=== PATIENT | male | born 1950 | race Caucasian/White ===

== ENCOUNTER → 2016-08-25 | Outpatient (CLI) | payer BC ==
[~2016-08-25] MED LIST: ASPI81TA28 PO; PRLSR20 PO; SIMV80TA2 PO; TRIATAB3 PO
[2016-08-25 13:30] LABS: ALB/GLOB RATIO 0.9 (0.9-2); ALKALINE PHOSPHATASE 63 U/L (45-117); ALT/SGPT 26 U/L (12-78); AST/SGOT 15 U/L (15-37); BLOOD UREA NITROGEN 15 mg/dl (7-18); BUN/CREATININE RATIO 13.7 (10-20); CARBON DIOXIDE 28 mmol/L (21-32); CHLORIDE 108 mmol/L (98-107); CHOLESTEROL 114 mg/dl (0-200); CHOLESTEROL/HDL RATIO 3.4; GLUCOSE 94 mg/dl (70-99); HDL CHOLESTEROL 34 mg/dl; LDL CHOLESTEROL CALCULATED 51 mg/dl; POTASSIUM 4.1 mmol/L (3.5-5.1); SODIUM 141 mmol/L (136-145); TRIGLYCERIDES 143 mg/dl (0-150); VERY LOW DENSITY LIPOPROT CALC 29 mg/dl
[2016-08-25 13:34] LABS: ESTIMATED AVERAGE GLUCOSE 117 mg/dl; HA1C FLAG Normal (Normal)
== END | disposition home or self-care (01) ==
LOC: C.LABPVFM 08:04
PROVIDERS: ATTEND Family Medicine
DX: E78.5 Hyperlipidemia, unspecified (principal); I10 Essential (primary) hypertension; K21.0 Gastro-esophageal reflux disease with esophagitis; D22.9 Melanocytic nevi, unspecified; R73.01 Impaired fasting glucose

== ENCOUNTER → 2016-12-25 | Outpatient (CLI) | payer BC ==
[2016-12-25 17:44] LABS: BASO % 0.3 %; BASO ABS # 0.02 K/uL (0-0.2); COMPLETE YES; EOS % 4.7 %; HEMATOCRIT 42.5 % (42-52); IG% 0.3 %; LYMPH % 30.3 %; LYMPH ABS # 1.74 K/uL (1.2-3.4); MEAN CELL VOLUME 94.9 fL (80-100); MEAN CORPUSCULAR HEMOGLOBIN 32.1 pg (25-34); MEAN CORPUSCULAR HGB CONC 33.9 g/dl (32-36); MEAN PLATELET VOLUME 10.7 fL (7.4-10.4); MONO % 8.4 %; PLATELET COUNT 192 K/uL (130-400); RED BLOOD COUNT 4.48 M/uL (4.7-6.1); WHITE BLOOD COUNT 5.74 K/uL (4.8-10.8)
[2016-12-25 18:45] LABS: ALT/SGPT 33 U/L (12-78); AST/SGOT 21 U/L (15-37); BLOOD UREA NITROGEN 22 mg/dl (7-18); BUN/CREATININE RATIO 18.6 (10-20); CALCIUM 9.8 mg/dl (8.5-10.1); CARBON DIOXIDE 24 mmol/L (21-32); CHLORIDE 106 mmol/L (98-107); GLUCOSE 96 mg/dl (70-99); POTASSIUM 4.1 mmol/L (3.5-5.1); SODIUM 137 mmol/L (136-145)
[2016-12-25 18:56] LABS: ALB/GLOB RATIO 0.8 (0.9-2); ALKALINE PHOSPHATASE 78 U/L (45-117)
[2016-12-26 06:33] LABS: ESTIMATED AVERAGE GLUCOSE 120 mg/dl; HA1C FLAG Normal (Normal)
--- NOTE | 2016-12-29 13:38 | CODING QUERY MEDICAL NECESSITY ---
SUPPORTING DIAGNOSIS NEEDED A supporting diagnosis is required for the test/procedure performed on this patient in order for us to be reimbursed by the patient's insurance. Please provide a supporting diagnosis for the following test/procedure listed below next to the test name along with your signature. *If there is no additional diagnosis for this patient that would support the following test/procedure please document that below next to the test/procedure. Test(s)/Procedure(s) that require a supporting diagnosis: * VITAMIN D, 25- HYDROXY DIAGNOSIS: * VITAMIN B12 DIAGNOSIS: Provider Signature: Date: Thank you Sylvia German [employer] Information Management Once completed, please kindly fax back to [phone] For questions please call [phone]
== END | disposition home or self-care (01) ==
LOC: C.LABPVFM 11:53
PROVIDERS: ATTEND Neuromusculoskeletal Medicine & OMM
DX: R53.83 Other fatigue (principal); E78.5 Hyperlipidemia, unspecified; I10 Essential (primary) hypertension; R73.01 Impaired fasting glucose; M1A.9XX0 Chronic gout, unspecified, without tophus (tophi); K21.0 Gastro-esophageal reflux disease with esophagitis

== ENCOUNTER → 2017-01-01 | Outpatient (CLI) | payer BC ==
[~2017-01-01] MED LIST changes: +OPTIRAY 320 IV PRN
--- NOTE | 2017-01-01 09:37 | DIAGNOSTIC IMAGING REPORT ---
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 TECHNIQUE: Multidetector CT imaging of the head was performed before and after the administration of intravenous contrast. IV contrast: 93 mL of Optiray 320. A dose lowering technique was used consistent with the principles of ALARA (as low as reasonably achievable). COMPARISON: None. CT DOSE (mGy.cm): The estimated cumulative dose is 1074.96 mGy.cm. FINDINGS: Butcher Supervisor topogram: Unremarkable. Ventricles and sulci normal in size. Brain parenchyma normal in appearance with preserved horton-white differentiation. No abnormal enhancement on postcontrast imaging. Intracranial vasculature grossly patent. No mass effect or midline shift. No hemorrhage or acute territorial infarct. No extra-axial fluid collection. Mild mucosal thickening in the anterior ethmoid air cells. Partial opacification of the left frontal sinus. Postsurgical changes of maxillary antrostomies. Calvarium intact. IMPRESSION: 1. No acute intracranial pathology. No abnormal enhancement. 2. Partial opacification of anterior ethmoid air cells and left frontal sinus with postsurgical changes of maxillary antrostomies. Electronically signed by: Arturo Rhodes M.D. 01/01/2017 9:36 AM Dictated Date/Time: 01/01/2017 9:30 AM
== END | disposition home or self-care (01) ==
LOC: C.CTS 09:05
PROVIDERS: ATTEND Internal Medicine Hematology
DX: D47.2 Monoclonal gammopathy (principal)

== ENCOUNTER → 2017-01-24 | Outpatient (CLI) | payer BC ==
[~2017-01-24] MED LIST changes: -OPTIRAY 320 IV PRN
[2017-01-24 19:07] LABS: LYME DISEASE AB IGG NEG (NEG); LYME DISEASE AB IGM NEG (NEG)
== END | disposition home or self-care (01) ==
LOC: C.LABPVFM 14:30
PROVIDERS: ATTEND Neuromusculoskeletal Medicine & OMM
DX: R53.83 Other fatigue (principal)

== ENCOUNTER → 2017-05-29 | Outpatient (CLI) | payer BC ==
[~2017-05-29] VITALS: Ht 170.2 cm; Wt 76.1 kg
[2017-05-29 15:30] VITALS: BP 138/80; PULSE 78; Ht 170.2 cm; Wt 76.1 kg
== END | disposition home or self-care (01) ==
LOC: C.NEUR 13:35
PROVIDERS: ATTEND Physician Assistant Medical
DX: G47.30 Sleep apnea, unspecified (principal); R53.83 Other fatigue

== ENCOUNTER → 2017-06-25 | Outpatient (CLI) | payer BC ==
--- NOTE | 2017-06-26 06:07 | PAP/PSG TECHNICIAN REPORT ---
[facility] Steam Trap Man Polysomnogram Report Study name: None Report date: 06/26/2017 Study date: 06/25/2017 Referring Physician: Ruma Perez PA-C Name: HAYDEE SANCHEZ Interpreting Physician: Brock Wilson M.D. Date of : 1950 Steam Trap Man: Julieta Kuhn RPSGT. Sex: Male Age: 67 Study Type: PSG PAP Weight: 167.8 lbs 15 in Height: 67 years, Height 5' 8" Neck Circum: BMI: 25.51 Medications: ASPIRIN 81 MG, INDOMETHACIN 25 MG, IRBESARTAN 300 MG, LOPERAMIDE 2 MG, OMEPRAZOLE 20 MG, SIMVASTATIN 40 MG Patient History 67 yr-old male here for a new CPAP treatment study. He was found to be positive for REGINA via a home sleep study. His AHI was around 25. He chose a Simplus full face mask size medium from [employer]. The test was started on room air and 4 CMH2O. ETCO2 testing was not utilized during this study. Room 1 Parameters Monitored NPSG: E1-M2, E2-M1, Fp1-M2, Fp2-M1, F3-M2, F4-M2, F4-M1, C3-M2, C4-M2, C4-M1, O1-M2, O2-M2, O2-M1, T3-M2, T4-M1, P3-M2, P4-M1, CHIN1, CHIN2, HR, EKG, Legs, PFLOW, SNOR, FLOW, CFLOW, Tidal Volume, THOR, ABDO, SpO2, PLTH, CPRESS, ETCO2 Wave, ETCO2, pH Sleep Architecture Sleep Stages Time at Lights Off 10:19:00 PM STAGES Time (min.) TST (%) Time at Lights On 5:35:00 AM Wake 65.0 -- Total Recording Time (TRT) 436.00 min. N1 67.0 18 Total Sleep Period (TSP) 429.5 min. N2 207.5 56 Total Sleep Time (TST) 371.0min. N3 24.0 6 Awake Time 65.0 min. REM 72.5 20 Wake after Sleep Onset 58.5 min. Sleep Efficiency (SE) 85 % Sleep Onset Latency (BENJAMIN) 6.5 min. Number of Stage 1 Shifts None Awakenings 20 Stage Changes 116 Number of REM periods 5 REM 72.5 20 REM Latency 42.0 min. NREM 298.5 80 Body Position Analysis Supine Right Left Side Prone Vertical Total Sleep Time (min.) 83.1 103.3 219.2 322.54 0.0 0.0 Total Sleep Time (%) 13% 28% 59% 87 0% N/A% Total Sleep Time REM (min.) 0.0 12.0 60.5 None 0.0 0.0 Total Sleep Time NREM (min.) 48.5 91.3 158.7 None 0.0 0.0 Intermittent Wake (min.) 34.7 7.2 23.1 None 0.0 0.0 Total Sleep Period (%) 18% None None None None None Arousals Myoclonus (PLM) * Events Count Index Events Count Index Spontaneous 34 5 Events Awake (PLMW) 46 42.5 Respiratory 12 2.1 Events Asleep w/ Arousal (PLMA) 29 4.7 PLM 29 5 Events Asleep w/o Arousal (PLMS) 142 23.0 Snoring 4 1 Total Asleep 171 27.7 Total 79 13 Total 217 30 Respiratory Analysis * CA OA MA CH H RERA Total Count 4 2 0 0 4 10 10 Index 0.6 0.3 0.0 0 0.6 2 3.2 Mean Duration 12.4 14.6 0.0 0.00 21.3 19.1 17.7 Longest Duration 14.7 15.9 0.0 0.00 0.0 23.6 24.3 Respiratory Event Summary Total Supine ~Supine Right Left Prone REM NREM Apneas Count 6 4 2 0 2 N/A 1 5 Index 1.0 5 0 0.0 0.5 N/A 1 1 Hypopneas (4% Desat) Count 4 2 2 0 2 N/A 1 3 Index 0.6 2.5 0 0.0 0.5 N/A 0.8 0.6 Apneas & All Hypopneas Count 10 6 4 0 4 N/A 2 8 Index 1.6 7 1 0 1 N/A 1.7 1.6 Respiratory Events (Industrial Illuminating Engineer+All Hyp+RERA) Count 10 13 7 0 7 N/A 2 8 Index 3.2 16 1 0.0 1.9 N/A 4.1 3.0 Respiratory Related Arousal Count 12 13 3 0 3 N/A 3 10 Index 2.1 12 1 0 1 N/A 2 2 Snoring Analysis Supine Right Left Prone REM NREM Total Snore duration 2.3 min Snores count 28 8 96 N/A 13 119 132 Snore mean duration 1.0 Sec Snores index 35 5 26 N/A 10.8 23.9 21.3 TST with snoring (%) 0.6% Desaturation Event Summary: Minimum %SpO2 Event Count Mean/Min/Max Duration(sec.) Desaturation Index % Time In Bed > 90 11 37.0 / 14.0 / 60.0 1.5 100.0 86 - 90 0 N/A 0.0 0.0 81 - 85 0 N/A 0.0 0.0 76 - 80 0 N/A 0.0 0.0 71 - 75 0 N/A 0.0 0.0 66 - 70 0 N/A 0.0 0.0 61 - 65 0 N/A 0.0 0.0 56 - 60 0 N/A 0.0 0.0 51 - 55 0 N/A 0.0 0.0 < 50 0 N/A 0.0 0.0 Total REM NREM Awake <50% 0.0 min. 0.0 min. 0.0 min. 0.0 min. 51 - 60% 0.0 min. 0.0 min. 0.0 min. 0.0 min. 61 - 70% 0.0 min. 0.0 min. 0.0 min. 0.0 min. 71 - 80% 0.0 min. 0.0 min. 0.0 min. 0.0 min. 81 - 90% 0.0 min. 0.0 min. 0.0 min. 0.0 min. 91 - 100% 435.4 min. 72.5 min. 298.5 min. 64.4 min. Average 94 94 94 95 Minimum SpO2 91 91 91 91 Desaturation Event Index 1.5 1.7 1.4 1.8 # Desat. Events below 89% N/A N/A N/A N/A Time(%) with Saturation below 89% 0.0 0.0 0.0 0.0 Time(min.) with Saturation below 89% 0.0 0.0 0.0 0.0 Time (mins) REM (mins) NREM (mins) % of TST SpO2 Below 90% N/A N/A NN/A 0.0 SpO2 Below 88% 0 0 0 0 Heart Rate Analysis Min (bpm) Max (bpm) Average (bpm) Awake 49 90 58 NREM 48 81 55 REM 44 106 53 Overall 44 106 54 Supplemental O2 Values Minimum O2 level: None Value Start Time End Time Steam Trap Man Comments Mr. Sanchez slept in the right and supine positions. No cardiac arrhythmias were noted. PLMs were noted. No bruxism noted. CPAP was initiated at +4 CMH2O and up-titrated to a level of +8 CMH2O, Cflex 2 which nearly eliminated all respiratory events and snoring. A Simplus full face mask size medium from [employer] was used during titration. He did not wake up to use the restroom during the night. Mr. Sanchez stated that he slept ok. The final report will be interpreted and signed by a sleep physician. The completed physician report will then be placed in the patient medical record. CPAP REPORT Therapy Detail Time / Page # Comment CPAP 4 cm H2O Full Face Mask Flex Pressure Relief Humidifier on 10:16:55 PM / pg. 275 CPAP 6 cm H2O Full Face Mask Flex Pressure Relief Humidifier on 10:55:25 PM / pg. 352 INCREASED FOR APNEAS ,RERAS, AND HYPOPNEAS WHILE STILL SUPINE CPAP 7 cm H2O Full Face Mask Flex Pressure Relief Humidifier on 4:57:47 AM / pg. 1077 INCREASED FOR RERAS AND HYPOPNEAS CPAP 8 cm H2O Full Face Mask Flex Pressure Relief Humidifier on 5:15:18 AM / pg. 1112 INCREASED FOR MORE RERAS AND A HYPOPNEA Therapy Event: Therapy (cm H20) 4 6 7 8 Total Time at Pressure (min.) 36.4 362.4 17.5 19.7 TST at Pressure (min.) 27.4 308.4 16.0 19.2 # Periods 1 1 1 1 Sleep Onset (min.) 6.5 0.0 0.0 0.0 REM Onset (min.) N/A 12.1 N/A N/A Sleep Efficiency % 75 85 91 97 Wakefulness (%) 24.7 14.9 8.6 2.5 Wakefulness (min.) 9.0 54.0 1.5 0.5 NREM 1 (%) 23.3 11.3 68.6 29.0 NREM 1 (min.) 8.5 40.8 12.0 5.7 NREM 2 (%) 51.9 47.2 22.8 68.5 NREM 2 (min.) 18.9 171.1 4.0 13.5 NREM 3 (%) 0.0 6.6 0.0 0.0 NREM 3 (min.) 0.0 24.0 0.0 0.0 REM (%) 0.0 20.0 0.0 0.0 REM (min.) 0.0 72.5 0.0 0.0 # Arousals 8 55 10 6 Arousal Index 17.5 10.7 37.5 18.7 # Snore 76 30 23 3 Snore Index 166.3 5.8 86.2 9.4 AHI 4.4 1.0 3.7 6.2 AHI Supine 14.1 12.6 3.7 6.2 AHI Non-Supine 0.0 0.8 N/A N/A NREM AHI 4.4 0.8 3.7 6.2 REM AHI N/A 1.7 N/A N/A RDI 10.9 1.8 15.0 6.2 # Obstructive 1 1 0 0 # Central Ap 0 2 0 2 # Mixed 0 0 0 0 # Hypopneas 1 2 1 0 RERAS 3 4 3 0 Total Respiratory Events 5 9 4 2 Time Below SpO2 89.00% (min.) 0.0 0.0 0.0 0.0 Mean NREM SpO2 (%) 93 94 95 95 Mean REM SpO2 (%) N/A 94 N/A N/A Mean Sleep SpO2 (%) 93 94 95 95 Min NREM SpO2 (%) 92 91 93 94 Min REM SpO2 (%) N/A 91 N/A N/A Position Supine (min.) 8.5 4.7 16.0 19.2 Position Non-supine (min.) 18.9 303.6 0.0 0.0 LM Index Sleep 4.4 32.3 3.7 6.2 LM Index NREM 4.4 32.1 3.7 6.2 LM Index REM N/A 33.1 N/A N/A Mean Heart Rate (bpm) 55 54 55 56 Min Heart Rate (bpm) 51 44 51 52
--- NOTE | 2017-06-27 16:36 | POLYSOMNOGRAPH REPORT ---
CLINICAL DATA: A 67-year-old male with BMI of 25.5 referred by Ruma Perez and Dr. Paz for a CPAP study. He had a home sleep apnea test which showed moderate sleep apnea with an KIKA of 25. He used a Simplus full facemask size medium from [employer]. SLEEP ARCHITECTURE: Total sleep period was 429.5 minutes. Total sleep time was 371 minutes divided between 298.5 minutes of non-REM sleep and 72.5 minutes of REM sleep. Sleep onset latency was 6.5 minutes. REM latency was 42 minutes. Sleep efficiency was 85%. Wake after sleep onset was 58.5 minutes. Sleep consisted of stage N1 18%, stage N2 56%, stage N3 6%, and REM 20%. AROUSAL DATA: 79 arousals were recorded for an index of 13 per hour. PLM DATA: Mildly elevated limb movements during sleep were noted. There 171 limb movements during sleep noted for an index of 27.7 per hour with arousal index of 4.7 per hour. RESPIRATORY DATA: The AHI was 1.6. There were 4 central and 2 obstructive apneic episodes. The longest apneic episode was 15.9 seconds. There were 4 hypopneic episodes with a mean duration of 21.3 seconds. OXIMETRY DATA: No hypoxemia was seen. Oxygen anupama was 91%. Mean saturation was 94%. EKG: Heart rates ranged from 48-106 beats per minute. No arrhythmias were noted. MOBILE MARKETING SPECIALIST'S COMMENTS AND TREATMENT SUMMARY: The patient slept in the right and supine positions. CPAP was titrated up to 8 cm of water pressure, C-flex 2. At his final pressure setting, the patient slept for 19.2 minutes with an AHI of 6.2. He slept the majority of the night at 6 cm of water pressure for 308 minutes with an AHI of 1. IMPRESSION: Moderate obstructive sleep apnea/hypopnea corrected with CPAP 8 cm of water pressure, C-flex setting of 2 with the above noted interface. RECOMMENDATIONS: The patient should be started on the above noted treatment regimen and seen back in followup within 90 days to document efficacy and compliance. [facility]
== END | disposition home or self-care (01) ==
LOC: C.NEUR 20:00
PROVIDERS: ATTEND Physician Assistant Medical
DX: G47.33 Obstructive sleep apnea (adult) (pediatric) (principal)

== ENCOUNTER → 2017-06-29 | Outpatient (CLI) | payer BC ==
[~2017-06-29] VITALS: Ht 170.2 cm; Wt 76.7 kg
[2017-06-29 15:43] VITALS: BP 133/82; PULSE 81; Ht 170.2 cm; Wt 76.7 kg
== END | disposition home or self-care (01) ==
LOC: C.NEUR 15:22
PROVIDERS: ATTEND Internal Medicine Pulmonary Disease
DX: G47.30 Sleep apnea, unspecified (principal)

== ENCOUNTER → 2017-09-11 | Outpatient (CLI) | payer BC ==
[~2017-09-11] VITALS: Ht 170.2 cm; Wt 80.1 kg
[2017-09-11 15:38] VITALS: BP 142/83; PULSE 71; Ht 170.2 cm; Wt 80.1 kg
== END | disposition home or self-care (01) ==
LOC: C.NEUR 14:59
PROVIDERS: ATTEND Physician Assistant Medical
DX: G47.20 Circadian rhythm sleep disorder, unspecified type (principal); R09.81 Nasal congestion

== ENCOUNTER → 2017-12-27 | Outpatient (CLI) | payer BC ==
[2017-12-27 13:13] LABS: ALBUMIN 3.6 gm/dl (3.4-5.0); ALKALINE PHOSPHATASE 67 U/L (45-117); ALT/SGPT 25 U/L (12-78); AST/SGOT 19 U/L (15-37); BLOOD UREA NITROGEN 19 mg/dl (7-18); CALCIUM 9.3 mg/dl (8.5-10.1); CARBON DIOXIDE 25 mmol/L (21-32); CHOLESTEROL 114 mg/dl (0-200); CREATININE 1.28 mg/dl (0.60-1.40); GLUCOSE 100 mg/dl (70-99); LDL CHOLESTEROL CALCULATED 42 mg/dl; SODIUM 138 mmol/L (136-145)
== END | disposition home or self-care (01) ==
LOC: C.LABPVFM 15:36
PROVIDERS: ATTEND Family Medicine
DX: E78.5 Hyperlipidemia, unspecified (principal); M1A.9XX0 Chronic gout, unspecified, without tophus (tophi); K21.0 Gastro-esophageal reflux disease with esophagitis; R42 Dizziness and giddiness

== ENCOUNTER 2019-06-16 05:22 | Observation (INO) ==
[2019-06-16] MEDS ORDERED: NITROGLYCERIN SL 0.4 MG/TAB TAB ONE (05:44)
[2019-06-16] MEDS ORDERED: ASPIRIN 81 MG CHEW ONE (05:44)
[2019-06-16] MEDS ORDERED: NITROGLYCERIN SL 0.4 MG/TAB TAB SL STA (05:44)
[2019-06-16 06:03] LABS: Alanine Aminotransferase 37 U/L (12-78); Albumin Level 3.4 gm/dl (3.4-5.0); Aspartate Aminotransferase 17 U/L (15-37); BUN Creatinine Ratio 16.8 (10-20); Blood Urea Nitrogen 21 mg/dl (7-18); Calcium 9.7 mg/dl (8.5-10.1); Carbon Dioxide 29 mmol/L (21-32); Chloride 104 mmol/L (98-107); Creatinine Clr Calc Pharmacy 52.1 ml/min; Est GFR (African American) 67.7; Est GFR (Non-African American) 58.4; Glucose 92 mg/dl (70-99); Lipase 144 U/L (73-393); Potassium 3.6 mmol/L (3.5-5.1); Sodium 138 mmol/L (136-145)
[2019-06-16 06:08] LABS: Albumin Globulin Ratio 0.7 (0.9-2); Alkaline Phosphatase 91 U/L (45-117); Bilirubin,Total 0.6 mg/dl (0.2-1); Globulin 5.2 gm/dl (2.5-4.0); Total Protein 8.6 gm/dl (6.4-8.2); Troponin I < 0.015 ng/ml (0-0.045)
[2019-06-16 06:17] LABS: Basophils # (auto) 0.01 K/uL (0-0.2); Basophils % (auto) 0.1 %; Eosinophils # (auto) 0.09 K/uL (0-0.5); Hematocrit (blood only) 41.3 % (42-52); Hemoglobin 13.8 g/dL (14.0-18.0); Immature Granulocytes # (auto) 0.06 K/uL (0.00-0.02); Immature Granulocytes % (auto) 0.7 %; Lymphocytes # (auto) 3.03 K/uL (1.2-3.4); Mean Corpuscular Hemoglobin 32.6 pg (25-34); Mean Corpuscular Hgb Conc 33.4 g/dL (32-36); Mean Corpuscular Volume 97.6 fL (80-100); Mean Platelet Volume 9.8 fL (7.4-10.4); Monocytes # (auto) 0.79 K/uL (0.11-0.59); Monocytes % (auto) 8.9 %; Neutrophils # (auto) 4.92 K/uL (1.4-6.5); Neutrophils % (auto) 55.3 %; Platelet Count 193 K/uL (130-400); RDW Coefficient of Variation 12.3 % (11.5-14.5); RDW Standard Deviation 43.7 fL (36.4-46.3); Red Blood Count 4.23 M/uL (4.7-6.1)
--- NOTE | 2019-06-16 06:37 | XRay Report ---
XR chest 1V portable CLINICAL HISTORY: Atypical chest pain COMPARISON STUDY: No previous studies for comparison. FINDINGS: The cardiac and mediastinal contours are normal. There is no evidence of focal pulmonary co nsolidation. There is no evidence of failure. No pleural effusions are visualized.[ IMPRESSION: No active disease in the chest. ACT 112: Negative or not required by law. Electronically signed by: Jass Merino M.D. 06/16/2019 6:36 AM
--- NOTE | 2019-06-16 06:50 | Emergency Department Note ---
Entered by Krishna Hurtado acting as a scribe for Ashley Cade DO History of Present Illness General Chief complaint: Chest Pain Stated complaint: CHEST PAIN, Time Seen by Provider: 06/16/19 05:29 Source: patient History of Present Illness Provider complaint: chest pain Onset (ago): hour(s) 2 Location: chest Radiation: non-radiation Pain Consistency: + intermittent Maximum Pain Intensity: 2 Current Pain Intensity: 1 Relieved By: + none Associated symptoms: + denies other symptoms The patient is a 69 y/o male who presents to the emergency department for evaluation of intermittent chest pain beginning 2 hours ago. The patient states that he was woken up to use the restroom at 3 am he noticed the chest pain but went back to bed, then at 4am he was woken up again by the chest pain. He notes that the pain is currently a 2/10 but uncomfortable. The patient states that he has a similar episode a few months ago but he went back to sleep and the pain went away. He also reports he has a sore throat. The patient denies shortness of breath, leg swelling, and any other symptoms. Home Medications Home Medications Medication Instructions Recorded Confirmed Type aspirin 81 mg tablet,delayed 81 mg PO DAILY 04/01/19 06/16/19 History release fluticasone propionate 50 2 sprays INTNAS DAILY 04/01/19 06/16/19 History mcg/actuation nasal spray,suspension irbesartan 300 mg tablet 300 mg PO DAILY 04/01/19 06/16/19 History omeprazole 20 mg capsule,delayed 20 mg PO BID 04/01/19 06/16/19 History release simvastatin 40 mg tablet 40 mg PO QPM 04/01/19 06/16/19 History prednisone 10 mg PO UD 06/16/19 06/16/19 History Allergies Allergy/AdvReac Type Severity Reaction Status Date / Time meloxicam [From Mobic] Allergy Unknown Verified 06/16/19 05:29 fexofenadine AdvReac Unknown "WIRED"/INS Verified 06/16/19 05:29 OMNIA Past Med/Surg History Medical History (Updated 06/16/19 @ 06:21 by Krishna Hurtado) Hypercholesteremia Hypertension Surgical History No pertinent past surgical history Social History Feels Safe at Home: Yes Smoking Status: Never smoker Review of Systems See HPI for pertinent positives & negatives. and A total of 10 systems reviewed and were otherwise negative Physical Exam Vital Signs Vital Signs - 24 hr 06/16/19 05:24 06/16/19 05:33 06/16/19 05:56 Temperature 36.3 C L Temperature Source Oral Pulse Rate 60 Pulse Rate [Right] 68 Pulse Rhythm [Right] Regular Pulse Strength [Right] Normal Respiratory Rate 18 16 Respiratory Effort / Characteristics Non-Labored Non-Labored Spontaneous Respiratory Depth Normal Normal Respiratory Pattern Regular Blood Pressure 168/81 H Blood Pressure [Right Arm] 131/62 Blood Pressure Mean 110 Blood Pressure Mean [Right Arm] 85 Blood Pressure Position [Right Arm] Lying Pulse Oximetry 98 99 100 Oxygen Delivery Method Room Air Room Air Room Air Sepsis Recent Fever Within 48 Hours No Sepsis Action Taken by Nursing No Action Required 06/16/19 06:32 Temperature Temperature Source Pulse Rate Pulse Rate [Right] 56 L Pulse Rhythm [Right] Pulse Strength [Right] Respiratory Rate 18 Respiratory Effort / Characteristics Respiratory Depth Respiratory Pattern Blood Pressure Blood Pressure [Right Arm] 116/60 Blood Pressure Mean Blood Pressure Mean [Right Arm] 78 Blood Pressure Position [Right Arm] Pulse Oximetry 98 Oxygen Delivery Method Room Air Sepsis Recent Fever Within 48 Hours Sepsis Action Taken by Nursing HEENT: Head - normocephalic and atraumatic Pupils are equal, round, and reactive to light. Extraocular eye muscles are intact, and sclera are anicteric. Nose - moist nasal mucosa without discharge. Mouth - moist buccal mucosa. Oropharynx is nonerythematous and there is no tonsillar exudate or edema noted. Neck: Supple; no JVD, nuchal rigidity, or auscultated bruits. Left anterior cervical lymph nodes. Heart: Regular rate and rhythm. There is a normal S1 and S2 with no murmurs, clicks, or gallops appreciated. Lungs: Clear to auscultation bilaterally with no wheezes, rales, or rhonchi. Abdomen: Soft, completely nontender, nondistended, with good bowel sounds. There are no palpable pulsatile masses or hepatosplenomegaly. There is no guarding, rigidity, or rebound noted. Extremities: No evidence of cyanosis, clubbing, or edema. There are easily p alpable peripheral pulses. Skin: warm and dry with good turgor and no rashes. Course Course 0538: Past medical records reviewed. The patient was evaluated in room B09. A complete history and physical exam was performed. A twelve-lead EKG was obtained. An IV lock was initiated and labs were drawn as above. A order was placed for continuous cardiac monitoring and the patient remained in a sinus bradycardia at 54. 0544: I ordered Nitroglycerin 0.4 mg SL and aspirin. 0556: The patient is pain free after the dose of Nitroglycerin. The patient had a portable chest x-ray as described below. 0610: I checked on the patient and he is feeling better with the nitroglycerin. I discussed admission with the patient and he is agreeable. 0617: I spoke with Dr. Columba Horowitz hospitalist. He will evaluate for further management. Administered Medications Discontinued Medications Aspirin (Aspirin Chew) Confirm Administered Dose 243 mg .ROUTE .STK-MED ONE Stop: 06/16/19 05:45 Last Admin: 06/16/19 05:45 Dose: 243 mg Documented by: [id number] Nitroglycerin (Nitrostat) Confirm Administered Dose 0.4 mg .ROUTE .STK-MED ONE Stop: 06/16/19 05:45 Last Admin: 06/16/19 05:45 Dose: 0.4 mg Documented by: [id number] Nitroglycerin (Nitrostat) 0.4 mg SL NOW STA Stop: 06/16/19 05:45 Last Admin: 06/16/19 05:45 Dose: Not Given Documented by: [id number] Medical Decision Making Differential Diagnosis Differential diagnosis: GERD, STEMI, ACS, aortic dissection. Medical Records Attestation: I reviewed the patient's medical records. Home Medications Current Medication List: was personally reviewed by me Laboratory Data Attestation: I reviewed the patient's lab results. Result diagrams: 06/16/19 05:35 06/16/19 05:35 Lab Results 06/16/19 06/16/19 Range/Units 05:35 05:35 WBC 8.90 (4.8-10.8) K/uL RBC 4.23 L (4.7-6.1) M/uL Hgb 13.8 L (14.0-18.0) g/dL Hct 41.3 L (42-52) % MCV 97.6 (80-100) fL MCH 32.6 (25-34) pg MCHC 33.4 (32-36) g/dL RDW Std Deviation 43.7 (36.4-46.3) fL RDW Coeff of Mayi 12.3 (11.5-14.5) % Plt Count 193 (130-400) K/uL MPV 9.8 (7.4-10.4) fL Immature Gran % (Auto) 0.7 % Neut % (Auto) 55.3 % Lymph % (Auto) 34.0 % [place] % (Auto) 8.9 % Eos % (Auto) 1.0 % Baso % (Auto) 0.1 % Immature Gran # (Auto) 0.06 H (0.00-0.02) K/uL Neut # (Auto) 4.92 (1.4-6.5) K/uL Lymph # (Auto) 3.03 (1.2-3.4) K/uL [place] # (Auto) 0.79 H (0.11-0.59) K/uL Eos # (Auto) 0.09 (0-0.5) K/uL Baso # (Auto) 0.01 (0-0.2) K/uL Sodium 138 (136-145) mmol/L Potassium 3.6 (3.5-5.1) mmol/L Chloride 104 (98-107) mmol/L Carbon Dioxide 29 (21-32) mmol/L Anion Gap 5.0 (3-11) BUN 21 H (7-18) mg/dl Creatinine 1.25 (0.6-1.4) mg/dl Est Cr Clr Drug Dosing 52.1 ml/min Est GFR ( Amer) 67.7 Est GFR (Non-Af Amer) 58.4 BUN/Creatinine Ratio 16.8 (10-20) Glucose 92 (70-99) mg/dl Calcium 9.7 (8.5-10.1) mg/dl Total Bilirubin 0.6 (0.2-1) mg/dl AST 17 (15-37) U/L ALT 37 (12-78) U/L Alkaline Phosphatase 91 (45-117) U/L Troponin I < 0.015 (0-0.045) ng/ml Total Protein 8.6 H (6.4-8.2) gm/dl Albumin 3.4 (3.4-5.0) gm/dl Globulin 5.2 H (2.5-4.0) gm/dl Albumin/Globulin Ratio 0.7 L (0.9-2) Lipase 144 (73-393) U/L Imaging Data Attestation: I personally reviewed and interpreted this imaging study as follows: My Impression: Chest x-ray portable showed borderline cardiomegaly, no pulmonary infiltrate or consolidation. ECG Data Attestation: I personally reviewed and interpreted this ECG as follows: Indication: + chest pain Rate (beats per minute): 60 Rhythm: + normal sinus ECG ST segments: no ST depression and no ST elevation ECG Findings: no PACs and no PVCs Comparison ECG Date: from (09/27/12) Change: no significant change Blood Pressure Blood Pressure Findings: Elevated blood pressure Blood Pressure Disposition: Referred to patients primary care provider MDM Narrative The patient is a 69 y/o male who presents to the emergency department for evaluation of intermittent chest pain beginning 2 hours ago. The patient awoke from sleep with this discomfort. There was no associated shortness of breath or nausea. He describes having similar episode sometime ago but seem to be relieved after he was able to expel some gas. He became more concerned this morning because the symptoms would not resolve. When he arrived here in the emergency department, he described his discomfort as substernal and rated as a 2/10. He was given sublingual nitroglycerin which completely relieved his discomfort. The patient does have risk factors for heart disease. He has a history of hypertension and hypercholesterolemia. EKG was unchanged from previous EKGs and there was a negative troponin. I discussed the case with the [facility] hospitalist and they will evaluate for further management. Impression & Plan Substernal chest pain Discharge Plan Visit Data Chief Complaint: Chest Pain Stated Complaint: CHEST PAIN, ED Provider: Ashley Cade Discharge Problem: Substernal chest pain Patient Disposition: Being Evaluated by Hospitalist Forms Stand Alone Forms: Call Back Authorization, My [facility] Prescriptions Prescriptions: No Action omeprazole 20 mg capsule,delayed release(DR/EC) 20 mg PO BID RF: 0 aspirin [Aspir-81] 81 mg tablet,delayed release (DR/EC) 81 mg PO DAILY RF: 0 simvastatin 40 mg tablet 40 mg PO QPM RF: 0 irbesartan 300 mg tablet 300 mg PO DAILY RF: 0 fluticasone propionate 50 mcg/actuation spray,suspension 2 sprays INTNAS DAILY RF: 0 prednisone 10 mg tablet 10 mg PO UD RF: 0 Referrals Referrals: Rhonda Laboy, [Primary Care Provider] - The scribe's documentation has been prepared under my direction and personally reviewed by me in its entirety. I confirm that the note above accurately reflects all work, treatment, procedures, and medical decision making performed by me.
[2019-06-16] MEDS ORDERED: ONDANSETRON INJ 2 MG/ML 2 ML VIAL IV PRN (07:41)
[2019-06-16] MEDS ORDERED: ACETAMINOPHEN 325 MG TAB PO PRN (07:41)
[2019-06-16] MEDS ORDERED: NITROGLYCERIN SL 0.4 MG/TAB TAB SL PRN (07:41)
[2019-06-16 08:24] LABS: Chol HDL Ratio 5; Cholesterol 198 mg/dl (0-200); HDL Cholesterol 40 mg/dl; LDL Cholesterol Calculated 106 mg/dl; Triglycerides 259 mg/dl (0-150); VLDL Cholesterol 52 mg/dl
--- NOTE | 2019-06-16 08:55 | History and Physical Report ---
DATE OF ADMISSION: 06/16/2019 CHIEF COMPLAINT: Chest pain. HISTORY OF PRESENT ILLNESS: This is a 69-year-old male with past medical history significant for hyperlipidemia, sleep apnea - on CPAP, hypertension, GERD, vitamin D deficiency, history of monoclonal gammopathy of unknown significance. 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 Currently, presents to the ER with chest pain. The patient says he woke up with severe chest pain in the retrosternal region, heavy pressure like feeling, no radiation, associated with some nausea, mild sweating, mild dizziness. The intensity lasted about 15 minutes and then started to ease out. By the time he came to the ER, it has come down. In the ER, he was given nitroglycerin and currently the patient's pain is resolved. Currently, he has some mild headache, no blurred vision, no runny nose, occasional dry cough. No difficulty swallowing. No odynophagia, no abdominal pain. Normal bowel and bladder movements. No hematuria or burning micturition, no melena or blood in the stools. No swelling in the legs, no rash. Otherwise, he is active. He can climb steps without any issues. ALLERGIES: MELOXICAM, FEXOFENADINE. PAST MEDICAL HISTORY: As mentioned above. PAST SURGICAL HISTORY: Colonoscopy, EGD, exploratory elbow surgery, knee arthroscopy, sinus surgery, surgical removal of erupted tooth. MEDICATIONS: The patient is on aspirin 81 mg p.o. daily, Flonase 2 sprays in each nostril daily, irbesartan 300 mg p.o. daily, omeprazole 20 mg p.o. b.i.d., simvastatin 40 mg p.o. at bedtime. FAMILY HISTORY: Significant for father had rheumatoid arthritis, hypertension, colon polyps. Mother has memory loss, hypertension. Brother has heart disease. Son has arthritis. Sister has hypertension. SOCIAL HISTORY: . No smoking history. Alcohol occasionally. No drug use. REVIEW OF SYMPTOMS: As per HPI. Rest of the systems negative. PHYSICAL EXAMINATION: GENERAL: The patient is of moderate built, not in acute distress. VITAL SIGNS: Temperature 36.3, pulse 56, respiratory rate 18, blood pressure 116/60, oxygen 98% on room air. HEENT: No pallor, no icterus. Pupils equal, round, and reactive to light. NECK: No JVD, no neck masses, no carotid bruit. CARDIOVASCULAR: S1, S2 heard, regular rate and rhythm, no murmur, no gallop. RESPIRATORY SYSTEM: Normal AP diameter. No accessory muscle use. No wheezing, no crackles. ABDOMEN: Soft, bowel sounds present, nontender. No distention. CENTRAL NERVOUS SYSTEM: Cranial nerves II-XII grossly intact. Nonfocal. EXTREMITIES: No edema, no erythema. LABORATORY DATA: WBC 8.9, hemoglobin 13.8, hematocrit 41.3, platelets 193. Sodium 138, potassium 3.6, chloride 104, bicarbonate 29, BUN 21, creatinine 1.25, serum glucose 92, calcium 9.7, total bilirubin 0.6, AST 17, ALT 37, alkaline phosphatase 91. Troponin I less than 0.015. Lipase 144. Chest x-ray: No acute findings seen. EKG: Normal sinus rhythm, rate of 60, no acute ST-T changes seen. ASSESSMENT AND PLAN: This is a 69-year-old male who presents with chest pain. 1. Chest pain, rule out acute coronary syndrome with risk factors of age, hypertension, hyperlipidemia, sleep apnea. Initial workup is negative. We will follow serial cardiac enzymes, echocardiogram. We will consult cardiology. We will keep n.p.o. for possible stress test. Monitor in the telemetry floor. 2. History of hypertension. Continue his home medication, irbesartan. We will monitor his blood pressure. 3. Gastroesophageal reflux disease. Continue his proton pump inhibitor. 4. Hyperlipidemia. Continue Zocor. Follow his fasting lipid profile. 5. Obstructive sleep apnea, on CPAP. 6. Diagnosis of monoclonal gammopathy of unknown significance. Follow up with hematology/oncology. 7. 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 Finished prednisone course. Still has pain in the right ear. Follow up with ENT. 8. Deep venous thrombosis prophylaxis, sequential compression devices. DISPOSITION: Observe in tele floor. Expect to discharge home and follow with family doctor. Level 1, full code. MTDD
[2019-06-16] MEDS ORDERED: ASPIRIN 81 MG ECTAB PO SCH ×2 (09:00→21:00)
[2019-06-16] MEDS ORDERED: IRBESARTAN 150 MG TAB PO SCH ×2 (09:00→21:00)
[2019-06-16] MEDS ORDERED: PANTOprazole 40 MG TAB PO SCH (09:00)
[2019-06-16] MEDS ORDERED: FLUTICASONE PROPIONATE NA SPR 16 GM BTL SCH ×2 (09:00→21:00)
--- NOTE | 2019-06-16 11:39 | Cardiology Consultation ---
Date of Consultation June 16, 2019 Assessment & Plan (1) Substernal chest pain: Non ischemic EKG. Initial cardiac enzymes negative. Repeat troponin around 11:30 AM, 6 hours from initial. He remains chest pain free. If repeat cardiac enzymes unremarkable, proceed with exercise stress echo to r/o ischemia. Continue ASA, irbesartan, simvastatin (2) Hypertension: BP elevated on arrival. Now Controlled. Continue home Meds. Case discussed with Dr. España. Further recommendations pending results of lab tests and stress echo. Supervising Physician Co-Signing Physician Notes Patient seen and examined with Dagmar Fernandez PA-C. Agree with findings and assessment as above. Chest pain that awoke him from sleep. Patient notes that he did not eat anything before bedtime last night which is unusual for him. Ischemic work-up is been unremarkable and his stress test was nonischemic. I do not see any cardiac component to his chest discomfort and would recommend ongoing treatment for GERD. No cardiac follow-up is necessary as an outpatient. Recommend follow-up with PCP and possibly GI if deemed necessary. Physical Exam: General: Awake, alert and oriented x 3. No acute distress. HEENT: Normocephalic, atraumatic. Pupils equal, round and reactive to light and accommodation. Extraocular muscles are intact. Anicteric sclera. Moist mucous membranes. Neck: No JVD. No bruit. Cardiovascular: Regular. No S-4. Normal S-1 and S-2. No S-3. No murmurs, rubs or gallops. Pulmonary: Clear to auscultation bilaterally. No rales, rhonchi, or wheezing. Abdomen: Bowel sounds x 4, soft. No rebound, guarding or tenderness. No organomegaly. Extremities: No clubbing, cyanosis or edema. +2 pedal pulses bilaterally. Skin: Warm and dry. History of Present Illness Reason for Consultation: chest pain Requesting Physician: Dr. Fenton Attending Physician: Dr. España History of Present Illness Patient is a 69-year-old male history of hypertension, dyslipidemia, recent issues with vocal cord inflammation on steroids following with ENT. He reports being told he had an enlarged heart several years ago with a "leaky valve" but denies other cardiovascular issues including CAD, prior Cath, history of arrhythmias, rheumatic fever. Echo completed at [facility] in Dec 2016 revealed normal LV systolic function, mild concentric LVH, grade I diastolic dysfunction and Mild MR. Patient reports he has been in usual state of health, other than sore throat and hoarseness from his vocal cord granuloma/inflammation. He was awakened from sleep around 4:45 AM this morning with substernal chest "ache" with mild radiation to his left arm. [place] it was difficult to take a deep breath. His symptoms persistent and his brought him to ER. By the time he arrived, symptoms mostly resolved. He Was treated with 1 sublingual nitro in the emergency department but he is unsure if this aided his symptoms p as he was already feeling better. He reports a long history of GERD. He took his probiotic before bed last night and usually takes it in the afternoon. felt he had significant "gas pressure". Initial cardiac enzymes were negative. EKG without acute ischemic changes. Telemetry revealed NSR. He reports he is very active working in his wood shop on a daily basis. he takes his dog for a walk every evening. No exertional chest pain reported. At times, he reports b/l arm heaviness at the top of a hill, but resolves quickly. he has noted these symptoms over the last 2 years but not progressive. at time of consult, he is feeling well. No recurrent chest pain, left arm pain, diaphoresis, SOB, palpitations. He voices no complaints. Allergies Allergy/AdvReac Type Severity Reaction Status Date / Time meloxicam [From [facility]] Allergy Unknown Verified 06/16/19 05:29 fexofenadine AdvReac Unknown "WIRED"/INS Verified 06/16/19 05:29 OMNIA Home Medications Home Medications Medication Instructions Recorded Confirmed Type aspirin 81 mg tablet,delayed 81 mg PO DAILY 04/01/19 06/16/19 History release fluticasone propionate 50 2 sprays INTNAS DAILY 04/01/19 06/16/19 History mcg/actuation nasal spray,suspension irbesartan 300 mg tablet 300 mg PO DAILY 04/01/19 06/16/19 History omeprazole 20 mg capsule,delayed 20 mg PO BID 04/01/19 06/16/19 History release simvastatin 40 mg tablet 40 mg PO QPM 04/01/19 06/16/19 History prednisone 10 mg PO UD 06/16/19 06/16/19 History Patient History Medical History (Updated 01/27/20 @ 11:53 by Dagmar Fernandez PA-C) GERD (gastroesophageal reflux disease) Hypercholesteremia Hypertension Surgical History No pertinent past surgical history Social History Preferred Language: Chadian Communication Ability: Effective 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 Beliefs That Will Affect Care: None Current Living Situation: Spouse Other Information That Helps Us Care for You: No Feels Safe at Home: Yes Safety Concerns: Feels Safe At This Time Smoking Status: Never smoker Hx Alcohol Use: Yes Alcohol type: beer and hard liquor Hx Substance Use: No Review of Systems Review of Systems: All systems reviewed & are unremarkable except as noted in HPI & below Physical Exam Constitutional: WD/WN, vitals as above well nourished; no acute distress Eyes: PERRL, conjunctivae normal, anicteric sclerae Neck: normal visual inspection Respiratory: normal respiratory effort, lungs clear to auscultation Cardiovascular: RRR, no murmur, no edema Vessels: no JVD and no carotid bruit Gastrointestinal (Abdomen): normal bowel sounds, soft, nontender, no hepatosplenomegaly Musculoskeletal: no cyanosis or clubbing, extremities motor strength 5/5 Neurologic: PERRL, EOMI, accommodation nl, no face palsy, no dysarthria Results & Data Vital Signs (Past 12 Hours) Vital Signs Temp Pulse Pulse Resp BP BP Pulse Ox 06/16/19 11:36 36.9 C 59 L 16 123/67 99 06/16/19 08:13 68 06/16/19 07:42 36.6 C 64 16 121/68 95 06/16/19 07:41 68 06/16/19 07:20 52 L 16 116/60 99 06/16/19 06:32 56 L 18 116/60 98 06/16/19 05:56 68 16 131/62 100 06/16/19 05:33 99 06/16/19 05:24 36.3 C L 60 18 168/81 H 98 Laboratory Results 06/16/19 06/16/19 06/16/19 Range/Units 11:31 07:51 05:35 WBC (4.8-10.8) K/uL RBC (4.7-6.1) M/uL Hgb (14.0-18.0) g/dL Hct (42-52) % MCV (80-100) fL MCH (25-34) pg MCHC (32-36) g/dL RDW Std Deviation (36.4-46.3) fL RDW Coeff of Mayi (11.5-14.5) % Plt Count (130-400) K/uL MPV (7.4-10.4) fL Immature Gran % (Auto) % Neut % (Auto) % Lymph % (Auto) % [place] % (Auto) % Eos % (Auto) % Baso % (Auto) % Immature Gran # (Auto) (0.00-0.02) K/uL Neut # (Auto) (1.4-6.5) K/uL Lymph # (Auto) (1.2-3.4) K/uL [place] # (Auto) (0.11-0.59) K/uL Eos # (Auto) (0-0.5) K/uL Baso # (Auto) (0-0.2) K/uL Sodium (136-145) mmol/L Potassium (3.5-5.1) mmol/L Chloride (98-107) mmol/L Carbon Dioxide (21-32) mmol/L Anion Gap (3-11) BUN (7-18) mg/dl Creatinine (0.6-1.4) mg/dl Est Cr Clr Drug Dosing ml/min Est GFR ( Amer) Est GFR (Non-Af Amer) BUN/Creatinine Ratio (10-20) Glucose (70-99) mg/dl Calcium (8.5-10.1) mg/dl Total Bilirubin (0.2-1) mg/dl AST (15-37) U/L ALT (12-78) U/L Alkaline Phosphatase (45-117) U/L Troponin I Pending < 0.015 (0-0.045) ng/ml Total Protein (6.4-8.2) gm/dl Albumin (3.4-5.0) gm/dl Globulin (2.5-4.0) gm/dl Albumin/Globulin Ratio (0.9-2) Triglycerides 259 H (0-150) mg/dl Cholesterol 198 (0-200) mg/dl LDL Cholesterol, Calc 106 mg/dl VLDL Cholesterol, Calc 52 mg/dl HDL Cholesterol 40 mg/dl Cholesterol/HDL Ratio 5 Lipase (73-393) U/L 06/16/19 06/16/19 Range/Units 05:35 05:35 WBC 8.90 (4.8-10.8) K/uL RBC 4.23 L (4.7-6.1) M/uL Hgb 13.8 L (14.0-18.0) g/dL Hct 41.3 L (42-52) % MCV 97.6 (80-100) fL MCH 32.6 (25-34) pg MCHC 33.4 (32-36) g/dL RDW Std Deviation 43.7 (36.4-46.3) fL RDW Coeff of Mayi 12.3 (11.5-14.5) % Plt Count 193 (130-400) K/uL MPV 9.8 (7.4-10.4) fL Immature Gran % (Auto) 0.7 % Neut % (Auto) 55.3 % Lymph % (Auto) 34.0 % [place] % (Auto) 8.9 % Eos % (Auto) 1.0 % Baso % (Auto) 0.1 % Immature Gran # (Auto) 0.06 H (0.00-0.02) K/uL Neut # (Auto) 4.92 (1.4-6.5) K/uL Lymph # (Auto) 3.03 (1.2-3.4) K/uL [place] # (Auto) 0.79 H (0.11-0.59) K/uL Eos # (Auto) 0.09 (0-0.5) K/uL Baso # (Auto) 0.01 (0-0.2) K/uL Sodium 138 (136-145) mmol/L Potassium 3.6 (3.5-5.1) mmol/L Chloride 104 (98-107) mmol/L Carbon Dioxide 29 (21-32) mmol/L Anion Gap 5.0 (3-11) BUN 21 H (7-18) mg/dl Creatinine 1.25 (0.6-1.4) mg/dl Est Cr Clr Drug Dosing 52.1 ml/min Est GFR ( Amer) 67.7 Est GFR (Non-Af Amer) 58.4 BUN/Creatinine Ratio 16.8 (10-20) Glucose 92 (70-99) mg/dl Calcium 9.7 (8.5-10.1) mg/dl Total Bilirubin 0.6 (0.2-1) mg/dl AST 17 (15-37) U/L ALT 37 (12-78) U/L Alkaline Phosphatase 91 (45-117) U/L Troponin I < 0.015 (0-0.045) ng/ml Total Protein 8.6 H (6.4-8.2) gm/dl Albumin 3.4 (3.4-5.0) gm/dl Globulin 5.2 H (2.5-4.0) gm/dl Albumin/Globulin Ratio 0.7 L (0.9-2) Triglycerides (0-150) mg/dl Cholesterol (0-200) mg/dl LDL Cholesterol, Calc mg/dl VLDL Cholesterol, Calc mg/dl HDL Cholesterol mg/dl Cholesterol/HDL Ratio Lipase 144 (73-393) U/L Diagnostic Findings EKG on arrival to ER reviewed: Normal sinus rhythm Minimal voltage criteria for LVH, may be normal variant Borderline ECG When compared with ECG of 27-SEP-2012 15:18, No significant change was found Chest xray IMPRESSION: No active disease in the chest. Telemetry reviewed: NSR, no arrhythmias Medications Administered Current Inpatient Medications Acetaminophen (Tylenol) 650 mg PO Q4H PRN PRN Reason: Pain or Fever Stop: 07/16/19 07:40 Aspirin (Ecotrin Ectab) 81 mg PO HS [facility] Stop: 07/16/19 20:59 Fluticasone Propionate (Flonase) 2 sprays NA HS [facility] Stop: 07/16/19 20:59 Irbesartan (Avapro) 300 mg PO HS [facility] Stop: 07/16/19 20:59 Nitroglycerin (Nitrostat) 0.4 mg SL UD PRN PRN Reason: Chest Pain Stop: 07/16/19 07:40 Ondansetron HCl (Zofran) 4 mg IV Q6H PRN PRN Reason: Nausea Stop: 07/16/19 07:40 Pantoprazole Sodium (Protonix) 40 mg PO BID [facility]OROTHY Stop: 07/16/19 08:59 Last Admin: 06/16/19 09:07 Dose: 40 mg Documented by: Simvastatin (Zocor) 40 mg PO QPM DOROTHY Stop: 07/16/19 20:59
--- NOTE | 2019-06-16 14:56 | Hospitalist Progress Note ---
Date of Service June 16, 2019 Assessment & Plan (1) Substernal chest pain: Non ischemic EKG. Initial and subsequent cardiac enzymes negative. He remains chest pain free. No EKG changes Appreciate cardiology input and recommendation Status post negative stress echo He will be going home this afternoon Continue ASA, irbesartan, simvastatin (2) Hypertension: BP elevated on arrival. Now Controlled. Continue home Meds. (3) GERD (gastroesophageal reflux disease): Has GERD which required PPI 2 times a day for some time Recently decreased PPI to once a day Was advised to take PPI 2 times a day for at least 1 month and then go back to once a day (4) Hypercholesteremia: Continue statin Subjective 06/16/2019 The patient was seen and examined in telemetry unit He was admitted with chest pain which woke him up from sleep early this morning He is status post negative stress echo Wants to go home Review of Systems Review of Systems: All systems reviewed and are unremarkable except as noted below Gastrointestinal: + heartburn Physical Exam Physical Exam: Lying in bed without any distress Constitutional: well developed and well nourished; no acute distress Eyes: PERRL, conjunctivae normal, anicteric sclerae ENMT: external ear and nose normal, oropharynx normal Neck: trachea midline, no thyromegaly Respiratory: normal respiratory effort and + respiratory distress Auscultation: lungs clear to auscultation bilaterally Cardiovascular: Rate/Rhythm: regular rate and regular rhythm Heart Sounds: no murmur Vessels: no JVD and no carotid bruit Gastrointestinal (Abdomen): Inspection/Auscultation: abdomen normal to inspection Percussion/Palpation: abdomen soft; abdomen nontender Minimal epigastric discomfort on palpation Musculoskeletal: No acute arthritis in any joints Neurologic: PERRL, EOMI, accommodation nl, no face palsy, no dysarthria Results & Data Vital Signs (Past 12 Hours) Vital Signs Temp Pulse Pulse Resp BP BP Pulse Ox 06/16/19 11:36 36.9 C 59 L 16 123/67 99 06/16/19 08:13 68 06/16/19 07:42 36.6 C 64 16 121/68 95 06/16/19 07:41 68 06/16/19 07:20 52 L 16 116/60 99 06/16/19 06:32 56 L 18 116/60 98 06/16/19 05:56 68 16 131/62 100 06/16/19 05:33 99 06/16/19 05:24 36.3 C L 60 18 168/81 H 98 Laboratory Results Short CBC 06/16/19 Range/Units 05:35 WBC 8.90 (4.8-10.8) K/uL Hgb 13.8 L (14.0-18.0) g/dL Hct 41.3 L (42-52) % Plt Count 193 (130-400) K/uL BMP 06/16/19 05:35 Sodium 138 Potassium 3.6 Chloride 104 Carbon Dioxide 29 BUN 21 H Creatinine 1.25 Glucose 92 Calcium 9.7 Cardiac Enzymes 06/16/19 06/16/19 06/16/19 Range/Units 05:35 07:51 11:31 Troponin I < 0.015 < 0.015 < 0.015 (0-0.045) ng/ml Liver Function 06/16/19 Range/Units 05:35 Total Bilirubin 0.6 (0.2-1) mg/dl AST 17 (15-37) U/L ALT 37 (12-78) U/L Alkaline Phosphatase 91 (45-117) U/L Albumin 3.4 (3.4-5.0) gm/dl Medications Administered Current Inpatient Medications Acetaminophen (Tylenol) 650 mg PO Q4H PRN PRN Reason: Pain or Fever Stop: 07/16/19 07:40 Aspirin (Ecotrin Ectab) 81 mg PO HS [facility] Stop: 07/16/19 20:59 Fluticasone Propionate (Flonase) 2 sprays NA HS [facility] Stop: 07/16/19 20:59 Irbesartan (Avapro) 300 mg PO HS [facility] Stop: 07/16/19 20:59 Nitroglycerin (Nitrostat) 0.4 mg SL UD PRN PRN Reason: Chest Pain Stop: 07/16/19 07:40 Ondansetron HCl (Zofran) 4 mg IV Q6H PRN PRN Reason: Nausea Stop: 07/16/19 07:40 Pantoprazole Sodium (Protonix) 40 mg PO BID DOROTHY Stop: 07/16/19 08:59 Last Admin: 06/16/19 09:07 Dose: 40 mg Documented by: Simvastatin (Zocor) 40 mg PO QPM DOROTHY Stop: 07/16/19 20:59
--- NOTE | 2019-06-16 19:58 | Electrocardiogram Report ---
Test Reason : Blood Pressure : / mmHG Vent. Rate : 060 BPM Atrial Rate : 060 BPM P-R Int : 154 ms QRS Dur : 094 ms QT Int : 392 ms P-R-T Axes : 018 049 067 degrees QTc Int : 392 ms Normal sinus rhythm Minimal voltage criteria for LVH, may be normal variant Borderline ECG When compared with ECG of 27-SEP-2012 15:18, No significant change was found Confirmed by Sekou Alvarez ([id number]) on 06/16/2019 7:58:21 PM Referred By: REFERRED SELF Confirmed By:Mohsen Alvarez
--- NOTE | 2019-06-16 20:09 | Electrocardiogram Report ---
Test Reason : Blood Pressure : / mmHG Vent. Rate : 059 BPM Atrial Rate : 059 BPM P-R Int : 180 ms QRS Dur : 092 ms QT Int : 400 ms P-R-T Axes : 061 073 077 degrees QTc Int : 396 ms Sinus bradycardia Otherwise normal ECG When compared with ECG of 16-JUN-2019 05:29, (unconfirmed) No significant change was found Confirmed by Sekou Alvarez ([id number]) on 06/16/2019 8:09:08 PM Referred By: REFERRED SELF Confirmed By:Mohsen Alvarez
[2019-06-16] MEDS ORDERED: SIMVASTATIN 40 MG TAB PO SCH (21:00)
[2019-06-16] MEDS ORDERED: TERAZOSIN HCL 1 MG CAP PO SCH (21:00)
--- NOTE | 2019-06-17 17:12 | Discharge Summary ---
Date of Service June 17, 2019 Admission HPI Per Admitting Provider DICTATED BY: Cyrus Fenton MD DATE OF ADMISSION: 06/16/2019 CHIEF COMPLAINT: Chest pain. HISTORY OF PRESENT ILLNESS: This is a 69-year-old male with past medical history significant for hyperlipidemia, sleep apnea - on CPAP, hypertension, GERD, vitamin D deficiency, history of monoclonal gammopathy of unknown significance. 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 Currently, presents to the ER with chest pain. The patient says he woke up with severe chest pain in the retrosternal region, heavy pressure like feeling, no radiation, associated with some nausea, mild sweating, mild dizziness. The intensity lasted about 15 minutes and then started to ease out. By the time he came to the ER, it has come down. In the ER, he was given nitroglycerin and currently the patient's pain is resolved. Currently, he has some mild headache, no blurred vision, no runny nose, occasional dry cough. No difficulty swallowing. No odynophagia, no abdominal pain. Normal bowel and bladder movements. No hematuria or burning micturition, no melena or blood in the stools. No swelling in the legs, no rash. Otherwise, he is active. He can climb steps without any issues. Admission Exam Per Admitting Provider GENERAL: The patient is of moderate built, not in acute distress. VITAL SIGNS: Temperature 36.3, pulse 56, respiratory rate 18, blood pressure 116/60, oxygen 98% on room air. HEENT: No pallor, no icterus. Pupils equal, round, and reactive to light. NECK: No JVD, no neck masses, no carotid bruit. CARDIOVASCULAR: S1, S2 heard, regular rate and rhythm, no murmur, no gallop. RESPIRATORY SYSTEM: Normal AP diameter. No accessory muscle use. No wheezing, no crackles. ABDOMEN: Soft, bowel sounds present, nontender. No distention. CENTRAL NERVOUS SYSTEM: Cranial nerves II-XII grossly intact. Nonfocal. EXTREMITIES: No edema, no erythema. Principal Diagnosis Chest pain status post negative stress echo, GERD, hypertension Discharge Exam Constitutional well developed and well nourished; no acute distress Eyes PERRL, conjunctivae normal, anicteric sclerae ENMT external ear and nose normal, oropharynx normal Neck trachea midline, no thyromegaly Respiratory normal respiratory effort and + respiratory distress Auscultation: lungs clear to auscultation bilaterally Cardiovascular Rate/Rhythm: regular rate and regular rhythm Heart Sounds: no murmur Vessels: no JVD and no carotid bruit Gastrointestinal (Abdomen) Inspection/Auscultation: abdomen normal to inspection Percussion/Palpation: abdomen soft; abdomen nontender Neurologic PERRL, EOMI, accommodation nl, no face palsy, no dysarthria Discharge Data Allergies Allergy/AdvReac Type Severity Reaction Status Date / Time meloxicam [From Mobic] Allergy Unknown Verified 06/16/19 05:29 fexofenadine AdvReac Unknown "WIRED"/INS Verified 06/16/19 05:29 OMNIA Consultations 06/16/19 06:16 ED Decision to Admit Stat 06/16/19 07:41 Consult Cardiology Routine Hospital Course (1) Substernal chest pain: Non ischemic EKG. Initial and subsequent cardiac enzymes negative. He remains chest pain free. No EKG changes Appreciate cardiology input and recommendation Status post negative stress echo He will be going home this afternoon Continue ASA, irbesartan, simvastatin (2) Hypertension: BP elevated on arrival. Now Controlled. Continue home Meds. (3) GERD (gastroesophageal reflux disease): Has GERD which required PPI 2 times a day for some time Recently decreased PPI to once a day Was advised to take PPI 2 times a day for at least 1 month and then go back to once a day (4) Hypercholesteremia: Continue statin Total Time Total Time Spent Total Time Spent (In Minutes): 35 minutes Total Time Includes: Examination of the Patient, Discharge Planning, Medication Reconciliation and Communication With Other Providers Discharge Plan Discharge Items Patient Disposition: Home - Self-Care Reason For Visit: CHEST PAIN Discharge Diagnosis: Chest pain status post negative stress echo, GERD, hypertension Condition on Discharge: Good Activity: Resume your previous activity Non-emergency contact: Primary Care Provider Call non-emergency contact if: you have any medication questions and your symptoms worsen Follow-up/Referrals: Rhonda Laboy DO [Primary Care Provider] - 06/23/19 11:05 am Diet: Heart Healthy Addtl Attending Provider Instructions: Take your PPI 2 times a day for 1 week and then he can go back to once a day Pending Studies at Discharge: No Stand-Alone Forms: Call Back Authorization, My [facility], Smoking Cessation Medications and DC Order Prescriptions: Continued omeprazole 20 mg capsule,delayed release(DR/EC) 20 mg PO BID RF: 0 aspirin [Aspir-81] 81 mg tablet,delayed release (DR/EC) 81 mg PO DAILY RF: 0 simvastatin 40 mg tablet 40 mg PO QPM RF: 0 irbesartan 300 mg tablet 300 mg PO DAILY RF: 0 fluticasone propionate 50 mcg/actuation spray,suspension 2 sprays INTNAS DAILY RF: 0 prednisone 10 mg tablet 10 mg PO UD RF: 0 Discharge Orders: Discharge Order (Routine); Ordered 06/16/19 Ordered By: Ami Olvera Admission Data Admit Date/Time: 06/16/19 06:43 Attending Provider: Ami Olvera Admit Provider: Cyrus Fenton Primary Care Provider: Rhonda Laboy Other Providers: Cyrus Fenton ; Simon España ; Byron Crump ; Andrés Finn ; Arik Parrish ; Robert Hackett ; Salty Hernandez ; Dagmar Fernandez ; Margo Forde ; Kash Zambrano Other Interventions: Discharge Summary Assessment (RN) Last Done: 06/16/19 15:11 DC Date/Time DO NOT enter until pt leaves facility: 06/16/19 16:05
== END 2019-06-16 16:05 | disposition home or self-care (01) ==
LOC: ED 05:22 → 2S 05:22

== ENCOUNTER 2021-06-30 06:17 | Observation (INO) ==
[2021-06-30] MEDS ORDERED: ALBUTEROL 0.083% NEBU SOLN 3 ML VIAL ONE (06:22)
[2021-06-30] MEDS ORDERED: ASPIRIN CHEW 324 MG ONE (06:22)
[2021-06-30] MEDS ORDERED: SODIUM CHLORIDE 0.9% 500 ML IV STA (06:37)
--- NOTE | 2021-06-30 06:41 | Emergency Department Note ---
Impression & Plan Pulmonary embolism, Smoldering myeloma, Pneumonia, Pleuritic chest pain ED Provider Note NAME: HAYDEE MOYA AGE: 71 SEX: M ARRIVES VIA: Ambulance INFORMANT: Patient ED PROVIDER(S): Rojelio Sage MD CHIEF COMPLAINT: Chest pain PLAN: Disposition: Admit MEDICAL DECISION MAKING: The patient is a pleasant 71-year-old gentleman with a past medical history of GERD, hypertension, hyperlipidemia, REGINA, vitamin D deficiency, history of monoclonal gammopathy of unknown significance which per records is now smoldering myeloma on Revlimid and Decadron, previous COVID-19 infection in January 2021 who presents to the emergency department with acute onset left sided chest pain that is worse with inspiration that that he first noticed yesterday morning and wondered whether or not he strained himself at work. He reports the pain has persisted and is associate with shortness of breath due to inability to take full breaths. He reports feeling fatigue and malaise over the past several days. He has mild congestion which he reports is chronic for him. He denies smoking history. He denies fevers, chills, nausea, vomit, diarrhea or urinary symptoms. He denies any similar episodes in the past. On arrival the patient is uncomfortable no acute distress, afebrile stable vital signs. He appears clinically dry. He has minor upper respiratory congestion. He has diminished breath sounds of the left base and lungs are otherwise relatively clear. EKG without overt acute ischemia. Chest x-ray with left basilar density and pleural effusion. WBC and platelets within normal limits. H/H similar to prior values. Chemistry without metabolic acidosis. Total bili 1.5, nonspecific given no abdominal pain. AST and ALT are unremarkable. Troponin negative/undetectable in the setting of greater than 24 hours of constant symptoms. Lipase is not elevated. COVID-19 RNA, DEVAN test was negative. Influenza PCR was negative. CTA of the chest was performed and demonstrates a filling defect within the right lower lobe pulmonary vessel which is difficult to differentiate between pulmonary artery versus pulmonary vein but is concerning for PE. Trace pleural effusion is noted and patchy and linear airspace opacities in the left lung base are better characterized. Given the patient's acute left-sided pain in the setting of his recent malaise pneumonia is likely. Bilateral lower extremity Dopplers were ordered. Findings were reviewed with the patient and he did agree with plan for admission. He denies any history of GI bleeding or bleeding otherwise. We will proceed with treatment with anticoagulation. Case was discussed with Dr. Miguel, David hospitalist, who will evaluate the patient for admission. Will proceed with treatment for PE with Lovenox. Triage Nursing notes reviewed and agree them. Prior medical records reviewed Vital Signs: reviewed and remarkable for no significant abnormalities Differential diagnosis: Cardiac ischemia, aortic dissection, pulmonary embolism, pneumothorax, pneumonia, pericarditis, myocarditis, esophageal rupture, GERD, cholecystitis, pancreatitis, musculoskeletal, as well as other pathologies. ER treatment provided: See below. Diagnostics interpreted by me: ECG: Normal sinus rhythm, 70 bpm, no ectopy, LVH, no overt ST elevation or de pression, QTC 416, QRS 92. No prior EKGs for comparison. Cardiac Monitoring: An order for continuous cardiac monitoring was placed and demonstrated Normal sinus rhythm, 70 bpm, no ectopy. Laboratory studies: See below Imaging studies: See below Consultation(s): Lor Casillas hospitalist. HPI: The patient is a pleasant 71-year-old gentleman with a past medical history of GERD, hypertension, hyperlipidemia, REGINA, vitamin D deficiency, history of monoclonal gammopathy of unknown significance which per records is now smoldering myeloma on Revlimid and Decadron, previous COVID-19 infection in January 2021 who presents to the emergency department with acute onset left sided chest pain that is worse with inspiration that that he first noticed yesterday morning and wondered whether or not he strained himself at work. He reports the pain has persisted and is associate with shortness of breath due to inability to take full breaths. He reports feeling fatigue and malaise over the past several days. He has mild congestion which he reports is chronic for him. He denies smoking history. He denies fevers, chills, nausea, vomit, diarrhea or urinary symptoms. He denies any similar episodes in the past. ROS: See above HPI for pertinent positives & negatives. A total of 10 systems reviewed and were otherwise negative. PAST MEDICAL HISTORY:See Below PAST SURGICAL HISTORY:See Below FAMILY HISTORY:See Below SOCIAL HISTORY:See Below HOME MEDICATIONS:See Below ALLERGIES:See Below VITALS:See Below PHYSICAL EXAMINATION: GENERAL: Awake, alert, uncomfortable-appearing, in no distress HENT: Normocephalic, atraumatic. Oropharynx with dry mucous membranes and otherwise unremarkable. EYES: Normal conjunctiva. Sclera non-icteric. NECK: Supple. No nuchal rigidity. FROM. No JVD. RESPIRATORY: Minor upper respiratory congestion. He has diminished breath sounds of the left base and lungs are otherwise relatively clear. CARDIAC: Regular rate, normal rhythm. Extremities warm and well perfused. Pulses equal. ABDOMEN: Soft, non-distended. No tenderness to palpation. No rebound or guarding. No masses. RECTAL: Deferred. MUSCULOSKELETAL: Chest examination reveals no tenderness. The back is symmetrical on inspection without obvious abnormality. There is no CVA tenderness to palpation. No joint edema. LOWER EXTREMITIES: Calves are equal size bilaterally and non-tender. No edema. No discoloration. NEURO: Normal sensorium. No sensory or motor deficits noted. SKIN: No rash or jaundice noted. ED COURSE: Critical Care: I have personally spent greater than 45 minutes of critical care time in the direct management of this patient. This includes bedside care, interpretation of diagnostic studies, and testing, discussion with consultants, patient, and family members, and other required patient management activities. This 45 minutes is in excess of all separately billable procedures. Rojelio Sage MD Past Med/Surg History Medical History BPH (benign prostatic hyperplasia) Chronic use of steroids GERD (gastroesophageal reflux disease) Hypercholesteremia Hypertension Moderate obstructive sleep apnea Smoldering myeloma Surgical History History of back surgery History of elbow surgery History of knee surgery History of sinus surgery History of tooth extraction No pertinent past surgical history Family History Father Hypertension Sister Hypertension Rheumatoid arthritis Multiple benign polyps of large intestine Denies family history of Colon cancer Ovarian cancer Prostate cancer Myocardial infarction Breast cancer Social History Smoking Status: Never smoker Hx Alcohol Use: Yes Alcohol type: beer and hard liquor Hx Substance Use: No Preferred Language: Polish Communication Ability: Effective J2Ee Consultant Required: No Beliefs That Will Affect Care: None Current Living Situation: Spouse Feels Safe at Home: Yes Assistive Devices: Glasses Allergies Allergies Allergy/AdvReac Type Severity Reaction Status Date / Time meloxicam [From [facility]] Allergy Unknown Unknown Verified 06/30/21 07:27 fexofenadine AdvReac Unknown "WIRED"/INS Verified 06/30/21 07:27 OMNIA Home Meds Home Medications Medication Instructions Recorded Confirmed irbesartan 300 mg tablet 300 mg PO DAILY 04/01/19 06/30/21 omeprazole 20 mg capsule,delayed 20 mg PO DAILY 04/01/19 06/30/21 release simvastatin 40 mg tablet 40 mg PO QPM 04/01/19 06/30/21 Lactobacillus acidophilus 10 10,000 mmu cells PO DAILY 01/22/21 06/30/21 billion cell capsule (Probiotic) aspirin 81 mg tablet,delayed 81 mg PO DAILY 01/22/21 06/30/21 release dexamethasone 4 mg tablet 20 mg PO WK 06/30/21 06/30/21 fluticasone propionate 50 2 spray INTRANASAL DAILY 06/30/21 06/30/21 mcg/actuation nasal spray,suspension lenalidomide 15 mg capsule 15 mg PO DAILY 06/30/21 06/30/21 (Revlimid) Previous Rx's Medication Instructions Recorded tamsulosin 0.4 mg capsule 0.4 mg PO DAILY #30 cap 11/20/19 Results & Data (ED) Vital Signs Vital Signs - 24 hr 06/30/21 06:23 06/30/21 06:41 06/30/21 07:30 Temperature 36.5 C Temperature Source Oral Pulse Rate 73 Pulse Rate [Apical] 61 Pulse Rhythm [Apical] Regular Respiratory Rate 18 18 Respiratory Effort / Characteristics Non-Labored Spontaneous Non-Labored Respiratory Depth Normal Normal Respiratory Pattern Regular Regular Blood Pressure 120/69 Blood Pressure [Right Arm] 114/65 Blood Pressure Mean 86 Blood Pressure Mean [Right Arm] 81 Pulse Oximetry 94 92 95 Oxygen Delivery Method Room Air Room Air Room Air Sepsis Recent Fever Within 48 Hours No Sepsis New/Unexplained Change in Mental Status No Sepsis Action Taken by Nursing No Action Required 06/30/21 09:00 Temperature Temperature Source Pulse Rate Pulse Rate [Apical] 57 L Pulse Rhythm [Apical] Regular Respiratory Rate 16 Respiratory Effort / Characteristics Non-Labored Respiratory Depth Normal Respiratory Pattern Regular Blood Pressure Blood Pressure [Right Arm] 119/60 Blood Pressure Mean Blood Pressure Mean [Right Arm] 79 Pulse Oximetry 97 Oxygen Delivery Method Room Air Sepsis Recent Fever Within 48 Hours Sepsis New/Unexplained Change in Mental Status Sepsis Action Taken by Nursing Laboratory Data Attestation: I reviewed the patient's lab results. Result diagrams: 06/30/21 06:25 06/30/21 06:25 Lab Results 06/30/21 06/30/21 06/30/21 Range/Units 06:25 06:25 06:25 WBC 5.26 (4.8-10.8) K/uL RBC 3.50 L (4.7-6.1) M/uL Hgb 11.7 L (14.0-18.0) g/dL Hct 35.7 L (42-52) % MCV 102.0 H (80-100) fL MCH 33.4 (25-34) pg MCHC 32.8 (32-36) g/dL RDW Std Deviation 52.8 H (36.4-46.3) fL RDW Coeff of Mayi 14.3 (11.5-14.5) % Plt Count 149 (130-400) K/uL MPV 9.9 (7.4-10.4) fL Immature Gran % (Auto) 0.6 % Neut % (Auto) 53.9 % Lymph % (Auto) 20.9 % [place] % (Auto) 21.5 % Eos % (Auto) 2.9 % Baso % (Auto) 0.2 % Neut # (Auto) 2.84 (1.4-6.5) K/uL Lymph # (Auto) 1.10 L (1.2-3.4) K/uL [place] # (Auto) 1.13 H (0.11-0.59) K/uL Eos # (Auto) 0.15 (0-0.5) K/uL Baso # (Auto) 0.01 (0-0.2) K/uL Immature Gran # (Auto) 0.03 H (0.00-0.02) K/uL PT 10.3 (9.0-12.0) Seconds INR 1.0 (0.9-1.1) Sodium 136 (136-145) mmol/L Potassium 3.7 (3.5-5.1) mmol/L Chloride 104 (98-107) mmol/L Carbon Dioxide 24 (21-32) mmol/L Anion Gap 8 (3-11) BUN 13 (6-23) mg/dl Creatinine 1.00 (0.6-1.4) mg/dl Est Cr Clr Drug Dosing 63.3 ml/min Est GFR ( Amer) 87.4 ml/min Est GFR (Non-Af Amer) 75.4 ml/min BUN/Creatinine Ratio 13.0 (10-20) Glucose 109 H (70-99(Fasting)) mg/dl Lactate (0.4-2.0) mmol/L Calcium 9.4 (8.5-10.1) mg/dl Phosphorus 2.4 L (2.5-4.9) mg/dl Magnesium 1.7 (1.7-2.4) mg/dl Total Bilirubin 1.5 H (0.2-1.0) mg/dl AST 20 (13-39) U/L ALT 33 (7-52) U/L Alkaline Phosphatase 74 (34-104) U/L Troponin I < 0.03 (0-0.04) ng/ml Total Protein 7.7 (6.0-8.3) gm/dl Albumin 3.8 (3.4-5.0) gm/dl Globulin 3.9 (2.5-4.0) gm/dl Albumin/Globulin Ratio 1.0 (0.9-2) Lipase 27 (11-82) U/L Procalcitonin (0-0.5) ng/ml Influ A Molecular Assay (Negative) Influ B Molecular Assay (Negative) SARS-CoV-2, RNA, NAAT (NEGATIVE) 06/30/21 06/30/21 06/30/21 Range/Units 06:54 06:54 10:18 WBC (4.8-10.8) K/uL RBC (4.7-6.1) M/uL Hgb (14.0-18.0) g/dL Hct (42-52) % MCV (80-100) fL MCH (25-34) pg MCHC (32-36) g/dL RDW Std Deviation (36.4-46.3) fL RDW Coeff of Mayi (11.5-14.5) % Plt Count (130-400) K/uL MPV (7.4-10.4) fL Immature Gran % (Auto) % Neut % (Auto) % Lymph % (Auto) % [place] % (Auto) % Eos % (Auto) % Baso % (Auto) % Neut # (Auto) (1.4-6.5) K/uL Lymph # (Auto) (1.2-3.4) K/uL [place] # (Auto) (0.11-0.59) K/uL Eos # (Auto) (0-0.5) K/uL Baso # (Auto) (0-0.2) K/uL Immature Gran # (Auto) (0.00-0.02) K/uL PT (9.0-12.0) Seconds INR (0.9-1.1) Sodium (136-145) mmol/L Potassium (3.5-5.1) mmol/L Chloride (98-107) mmol/L Carbon Dioxide (21-32) mmol/L Anion Gap (3-11) BUN (6-23) mg/dl Creatinine (0.6-1.4) mg/dl Est Cr Clr Drug Dosing ml/min Est GFR ( Amer) ml/min Est GFR (Non-Af Amer) ml/min BUN/Creatinine Ratio (10-20) Glucose (70-99(Fasting)) mg/dl Lactate (0.4-2.0) mmol/L Calcium (8.5-10.1) mg/dl Phosphorus (2.5-4.9) mg/dl Magnesium (1.7-2.4) mg/dl Total Bilirubin (0.2-1.0) mg/dl AST (13-39) U/L ALT (7-52) U/L Alkaline Phosphatase (34-104) U/L Troponin I (0-0.04) ng/ml Total Protein (6.0-8.3) gm/dl Albumin (3.4-5.0) gm/dl Globulin (2.5-4.0) gm/dl Albumin/Globulin Ratio (0.9-2) Lipase (11-82) U/L Procalcitonin < 0.05 (0-0.5) ng/ml Influ A Molecular Assay Negative (Negative) Influ B Molecular Assay Negative (Negative) SARS-CoV-2, RNA, NAAT NEGATIVE (NEGATIVE) 06/30/21 Range/Units 10:18 WBC (4.8-10.8) K/uL RBC (4.7-6.1) M/uL Hgb (14.0-18.0) g/dL Hct (42-52) % MCV (80-100) fL MCH (25-34) pg MCHC (32-36) g/dL RDW Std Deviation (36.4-46.3) fL RDW Coeff of Mayi (11.5-14.5) % Plt Count (130-400) K/uL MPV (7.4-10.4) fL Immature Gran % (Auto) % Neut % (Auto) % Lymph % (Auto) % [place] % (Auto) % Eos % (Auto) % Baso % (Auto) % Neut # (Auto) (1.4-6.5) K/uL Lymph # (Auto) (1.2-3.4) K/uL [place] # (Auto) (0.11-0.59) K/uL Eos # (Auto) (0-0.5) K/uL Baso # (Auto) (0-0.2) K/uL Immature Gran # (Auto) (0.00-0.02) K/uL PT (9.0-12.0) Seconds INR (0.9-1.1) Sodium (136-145) mmol/L Potassium (3.5-5.1) mmol/L Chloride (98-107) mmol/L Carbon Dioxide (21-32) mmol/L Anion Gap (3-11) BUN (6-23) mg/dl Creatinine (0.6-1.4) mg/dl Est Cr Clr Drug Dosing ml/min Est GFR ( Amer) ml/min Est GFR (Non-Af Amer) ml/min BUN/Creatinine Ratio (10-20) Glucose (70-99(Fasting)) mg/dl Lactate 0.7 (0.4-2.0) mmol/L Calcium (8.5-10.1) mg/dl Phosphorus (2.5-4.9) mg/dl Magnesium (1.7-2.4) mg/dl Total Bilirubin (0.2-1.0) mg/dl AST (13-39) U/L ALT (7-52) U/L Alkaline Phosphatase (34-104) U/L Troponin I (0-0.04) ng/ml Total Protein (6.0-8.3) gm/dl Albumin (3.4-5.0) gm/dl Globulin (2.5-4.0) gm/dl Albumin/Globulin Ratio (0.9-2) Lipase (11-82) U/L Procalcitonin (0-0.5) ng/ml Influ A Molecular Assay (Negative) Influ B Molecular Assay (Negative) SARS-CoV-2, RNA, NAAT (NEGATIVE) Administered Medications Enoxaparin Sodium (Enoxaparin 80 Mg/0.8 Ml Syr) 70 mg SQ Q12H DOROTHY Stop: 07/30/21 10:14 Last Admin: 06/30/21 10:36 Dose: 70 mg Documented by: [id number] Lidocaine (Lidocaine 5% 1 Patch) 1 patch TD QAM DOROTHY Stop: 07/30/21 11:59 Last Admin: 06/30/21 12:05 Dose: 1 patch Documented by: [id number] Discontinued Medications Acetaminophen (Acetaminophen 500 Mg Tab) 1,000 mg PO NOW STA Stop: 06/30/21 11:37 Last Admin: 06/30/21 12:04 Dose: 1,000 mg Documented by: [id number] Albuterol (Albuterol 0.083% Nebu Soln 3 Ml Vial) Confirm Administered Dose 2.5 mg .ROUTE .STK-MED ONE Stop: 06/30/21 06:23 Last Admin: 06/30/21 06:42 Dose: Not Given Documented by: [id number] Albuterol (Ipratropium [place]/Albuterol Respimat Inh) 2 puffs INH NOW STA Stop: 06/30/21 06:49 Last Admin: 06/30/21 07:31 Dose: 2 puffs Documented by: [id number] Aspirin (Aspirin Chew 324 Mg) Confirm Administered Dose 324 mg .ROUTE .STK-MED ONE Stop: 06/30/21 06:23 Last Admin: 06/30/21 06:42 Dose: Not Given Documented by: [id number] Sodium Chloride (Nss) 500 mls @ 999 mls/hr IV .Q31M STA Stop: 06/30/21 07:07 Last Infusion: 06/30/21 07:32 Dose: 0 mls/hr Documented by: [id number] Admin: 06/30/21 06:49 Dose: 999 mls/hr Documented by: [id number] Acetaminophen (Ofirmev) 1,000 mg in 100 mls @ 400 mls/hr IV NOW STA Stop: 06/30/21 07:02 Last Infusion: 06/30/21 07:49 Dose: 0 mls/hr Documented by: [id number] Admin: 06/30/21 07:31 Dose: 400 mls/hr Documented by: [id number] Sodium Chloride (Nss 1000ml) 1,000 mls @ 999 mls/hr IV .Q1H1M ONE Stop: 06/30/21 10:31 Last Infusion: 06/30/21 10:52 Dose: 0 mls/hr Documented by: [id number] Admin: 06/30/21 09:43 Dose: 999 mls/hr Documented by: [id number] Piperacillin Sod/Tazobactam Sod (Zosyn) 4.5 gm in 120 mls @ 240 mls/hr IV NOW ONE Stop: 06/30/21 10:10 Last Infusion: 06/30/21 11:36 Dose: 0 mls/hr Documented by: [id number] Admin: 06/30/21 10:36 Dose: 240 mls/hr Documented by: [id number] Ioversol (Optiray 320 125ml) 120 ml IV ONCE ONE Stop: 06/30/21 08:16 Last Admin: 06/30/21 08:15 Dose: 120 ml Documented by: [id number] Tramadol HCl (Tramadol Hcl 50 Mg Tablet) 50 mg PO NOW STA Stop: 06/30/21 11:37 Last Admin: 06/30/21 12:04 Dose: 50 mg Documented by: [id number] Imaging Data Radiologist's Impression: Chest X-Ray 06/30/21 06:37 XR chest 1V portable CLINICAL HISTORY: Atypical chest pain. COMPARISON STUDY: Chest radiograph January 22, 2021. FINDINGS: Lung volumes are normal. Slight blunting of the left costophrenic angle is noted. There is no pneumothorax. Mild left basilar opacity is present. Cardiomediastinal silhouette is stable. IMPRESSION: Mild left basilar opacity which favors atelectasis. Possible trace left pleural effusion. ACT 112: Negative or not required by law. Electronically signed by: Shaq Veras M.D. 06/30/2021 7:07 AM Chest CTA 06/30/21 07:39 CHEST CTA for PULMONARY ARTERIES CT DOSE: 298.22 mGy.cm HISTORY: Left sided pleuritic chest pain, shortness of breath, r/o PE TECHNIQUE: Multiaxial CT images of the chest were performed following the int ravenous administration of contrast to evaluate the pulmonary arteries. Maximal intensity projection images were also obtained. A dose lowering technique was utilized adhering to the principles of ALARA. COMPARISON STUDY: None. FINDINGS: There is a 2 cm lucent lesion occupying the majority of the T5 vertebral body. This demonstrates sclerotic edges and narrow zone of transition. Therefore, this is likely benign. No fractures within the visualized osseous structures. Limited views the upper abdomen demonstrate a normal liver, spleen, and adrenal glands. There is a tiny hiatus hernia. Otherwise, normal esophagus. No mediastinal or hilar lymphadenopathy. The heart is mildly enlarged. No pericardial effusion. Trace left pleural effusion. Normal caliber thoracic aorta with no evidence for dissection. No pneumothorax. Filling defect seen within the pulmonary vessel within the right lower lobe on images 101 through 120. This could be within the pulmonary artery or pulmonary vein. Therefore, this is indeterminate for a pulmonary embolus. The remaining pulmonary arteries show no filling defects to suggest a pulmonary embolus. Patchy and linear densities at the base of the left lung. There are few faint peripheral groundglass densities within the base of the left upper lobe. A few small linear densities at the base the right lower lobe consistent with subsegmental atelectasis. IMPRESSION: 1. A filling defect seen within a right lower lobe pulmonary vessel. This is difficult to differentiate between a pulmonary artery and pulmonary vein but is concerning for pulmonary embolus. Therefore, follow-up bilateral lower extremity venous Doppler is recommended to assess for a DVT. 2. Trace left pleural effusion. 3. Patchy and linear airspace opacities within the base of the left lung. These are nonspecific and could represent atelectasis or pneumonia. 4. Mild cardiomegaly. 5. A 2 cm indeterminate lucent lesion within the T5 vertebral body. This demonstrates benign features. ACT 112: Negative or not required by law. Electronically signed by: Héctor Fatima M.D. 06/30/2021 8:46 AM Venous Doppler Study 06/30/21 08:57 BILATERAL LOWER EXTREMITY VENOUS DOPPLER HISTORY: Abnormal chest CTA with possible pulmonary embolus. Evaluate for DVT. COMPARISON STUDY: None. FINDINGS: There is normal compressibility, flow, and augmentation within the bilateral lower extremity deep venous systems. IMPRESSION: No DVT within the right or left lower extremity. ACT 112: Negative or not required by law. Electronically signed by: Héctor Fatima M.D. 06/30/2021 10:09 AM Discharge Plan Visit Data Chief Complaint: Chest Pain Stated Complaint: CHEST PAIN ED Provider: Rojelio Sage Discharge Problem: Pulmonary embolism, Smoldering myeloma, Pneumonia, Pleuritic chest pain Discharge Problem: Pulmonary embolism Qualifiers: Pulmonary embolism type: unspecified Chronicity: acute Acute cor pulmonale presence: unspecified Qualified Code(s): I26.99 - Other pulmonary embolism without acute cor pulmonale Pneumonia Qualifiers: Pneumonia type: due to unspecified organism Laterality: right Lung location: unspecified part of lung Qualified Code(s): J18.9 - Pneumonia, unspecified organism
[2021-06-30 06:46] LABS: Basophils # (auto) 0.01 K/uL (0-0.2); Basophils % (auto) 0.2 %; Eosinophils # (auto) 0.15 K/uL (0-0.5); Eosinophils % (auto) 2.9 %; Hematocrit (blood only) 35.7 % (42-52); Hemoglobin 11.7 g/dL (14.0-18.0); Immature Granulocytes # (auto) 0.03 K/uL (0.00-0.02); Immature Granulocytes % (auto) 0.6 %; Lymphocytes % (auto) 20.9 %; Mean Corpuscular Hemoglobin 33.4 pg (25-34); Mean Corpuscular Hgb Conc 32.8 g/dL (32-36); Mean Platelet Volume 9.9 fL (7.4-10.4); Monocytes # (auto) 1.13 K/uL (0.11-0.59); Monocytes % (auto) 21.5 %; Neutrophils # (auto) 2.84 K/uL (1.4-6.5); Neutrophils % (auto) 53.9 %; Platelet Count 149 K/uL (130-400); RDW Coefficient of Variation 14.3 % (11.5-14.5); RDW Standard Deviation 52.8 fL (36.4-46.3); White Blood Count 5.26 K/uL (4.8-10.8)
[2021-06-30] MEDS ORDERED: IPRATROPIUM BROMIDE/ALBUTEROL respimat INH INH STA (06:48)
[2021-06-30] MEDS ORDERED: ACETAMINOPHEN 1,000 MG/100 ML VIAL IV STA (06:48)
--- NOTE | 2021-06-30 07:08 | XRay Report ---
XR chest 1V portable CLINICAL HISTORY: Atypical chest pain. COMPARISON STUDY: Chest radiograph January 22, 2021. FINDINGS: Lung volumes are normal. Slight blunting of the left costophrenic angle is noted. There is no pneumothorax. Mild left basilar opacity is present. Cardiomediastinal silhouette is stable. IMPRESSION: Mild left basilar opacity which favors atelectasis. Possible trace left pleural effusion. ACT 112: Negative or not required by law. Electronically signed by: Shaq Veras M.D. 06/30/2021 7:07 AM
[2021-06-30 07:11] LABS: Troponin I < 0.03 ng/ml (0-0.04)
[2021-06-30 07:13] LABS: Prothrombin Time 10.3 Seconds (9.0-12.0)
[2021-06-30 07:19] LABS: Alanine Aminotransferase 33 U/L (7-52); Albumin Level 3.8 gm/dl (3.4-5.0); Alkaline Phosphatase 74 U/L (34-104); Anion Gap 8 (3-11); Aspartate Aminotransferase 20 U/L (13-39); Bilirubin,Total 1.5 mg/dl (0.2-1.0); Blood Urea Nitrogen 13 mg/dl (6-23); Calcium 9.4 mg/dl (8.5-10.1); Carbon Dioxide 24 mmol/L (21-32); Chloride 104 mmol/L (98-107); Creatinine Clr Calc Pharmacy 63.3 ml/min; Est GFR (African American) 87.4 ml/min; Est GFR (Non-African American) 75.4 ml/min; Globulin 3.9 gm/dl (2.5-4.0); Glucose 109 mg/dl (70-99(Fasting)); Lipase 27 U/L (11-82); Magnesium 1.7 mg/dl (1.7-2.4); Phosphorus 2.4 mg/dl (2.5-4.9); Potassium 3.7 mmol/L (3.5-5.1); Sodium 136 mmol/L (136-145); Total Protein 7.7 gm/dl (6.0-8.3)
[2021-06-30 07:22] LABS: Influenza A virus by PCR Negative (Negative); Influenza B virus by PCR Negative (Negative)
[2021-06-30] MEDS ORDERED: BUPIVACAINE 0.5 % 5 MG/1 ML PF 10ML VIAL ONE (07:27)
[2021-06-30] MEDS ORDERED: OPTIRAY 320 125ml IV ONE (08:15)
--- NOTE | 2021-06-30 08:48 | CT Scan Report ---
CHEST CTA for PULMONARY ARTERIES CT DOSE: 298.22 mGy.cm HISTORY: Left sided pleuritic chest pain, shortness of breath, r/o PE TECHNIQUE: Multiaxial CT images of the chest were performed following the intravenous administration of contrast to evaluate the pulmonary arteries. Maximal intensity projection images were also obtaine d. A dose lowering technique was utilized adhering to the principles of ALARA. COMPARISON STUDY: None. FINDINGS: There is a 2 cm lucent lesion occupying the majority of the T5 vertebral body. This demonst rates sclerotic edges and narrow zone of transition. Therefore, this is likely benign. No fractures w ithin the visualized osseous structures. Limited views the upper abdomen demonstrate a normal liver, spleen, and adrenal glands. There is a tiny hiatus hernia. Otherwise, normal esophagus. No mediastina l or hilar lymphadenopathy. The heart is mildly enlarged. No pericardial effusion. Trace left pleural effusion. Normal caliber thoracic aorta with no evidence for dissection. No pneumothorax. Filling de fect seen within the pulmonary vessel within the right lower lobe on images 101 through 120. This cou ld be within the pulmonary artery or pulmonary vein. Therefore, this is indeterminate for a pulmonary embolus. The remaining pulmonary arteries show no filling defects to suggest a pulmonary embolus. Pa tchy and linear densities at the base of the left lung. There are few faint peripheral groundglass de nsities within the base of the left upper lobe. A few small linear densities at the base the right lo wer lobe consistent with subsegmental atelectasis. IMPRESSION: 1. A filling defect seen within a right lower lobe pulmonary vessel. This is difficult to differentia te between a pulmonary artery and pulmonary vein but is concerning for pulmonary embolus. Therefore, follow-up bilateral lower extremity venous Doppler is recommended to assess for a DVT. 2. Trace left pleural effusion. 3. Patchy and linear airspace opacities within the base of the left lung. These are nonspecific and c ould represent atelectasis or pneumonia. 4. Mild cardiomegaly. 5. A 2 cm indeterminate lucent lesion within the T5 vertebral body. This demonstrates benign features . ACT 112: Negative or not required by law. Electronically signed by: Héctor Fatima M.D. 06/30/2021 8:46 AM
[2021-06-30] MEDS ORDERED: SODIUM CHLORIDE 0.9% 1000ML 1,000 ML IV ONE (09:31)
[2021-06-30] MEDS ORDERED: PIPERACILL/TAZOBAC CONSULT ACTIVE PRN (09:41)
[2021-06-30] MEDS ORDERED: PIPERACILLIN/TAZOBACTAM 4.5 GM/120 ML BAG IV ONE (09:41)
--- NOTE | 2021-06-30 10:10 | Ultrasound Report ---
BILATERAL LOWER EXTREMITY VENOUS DOPPLER HISTORY: Abnormal chest CTA with possible pulmonary embolus. Evaluate for DVT. COMPARISON STUDY: None. FINDINGS: There is normal compressibility, flow, and augmentation within the bilateral lower extremit y deep venous systems. IMPRESSION: No DVT within the right or left lower extremity. ACT 112: Negative or not required by law. Electronically signed by: Héctor Fatima M.D. 06/30/2021 10:09 AM
[2021-06-30] MEDS ORDERED: ENOXAPARIN 1 MG/KG SQ SCH (10:15)
[2021-06-30] MEDS: ENOXAPARIN 80 MG/0.8 ML SYR SQ SCH ×2 (10:36→21:18)
--- NOTE | 2021-06-30 10:45 | History & Physical Report ---
Date of Service June 30, 2021 Assessment & Plan (1) Osteolytic lesion: (2) Atypical chest pain: (3) Pulmonary embolism: (4) Pneumonia: Plan: Acute onset chest pain with new filling defect seen on right lower lung. Presumably there may be additional clot burden even on the left contributing to his pain, however, this appears clear of clot on the left. There is some patchiness consistent with ?pneumonia vs atelectasis. With his underlying immunosuppression, we will empirically treat for pneumonia pending blood and sputum cultures and clinical improvement. Notably procalcitonin is negative. For his pain will continue with full dose Lovenox to treat the presumed PE and will schedule Tylenol with Tramadol for breakthrough pain and a lidocaine patch. 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 No other clear exacerbating factors. Holding on any hypercoagulable workup for now and will discuss further with his consular officer, Dr. Stoddard. Trop is negative and EKG nonischemic and CT chest shows no pericardial effusion; doubt cardiac in nature but may consider an echo if not improved. ADDENDUM: Dr. Stoddard recommended an MRI of the area in question, and a t-spine MRI with and wo contrast was performed later today. This revealed a lytic enhancing lesion of the T5 vertebral body which appears to be the likely cause of the patient's discomfort. Consult was placed to ortho spine surgeon for treatment recommendations as he is not functional with this. Cont pain control efforts overnight. (5) Smoldering myeloma: Plan: Cont Revlimid and decadron at current 20mg weekly dose (6) Hypertension: Plan: chronic, controlled. Cont irbesartan per home regimen. (7) Chronic use of steroids: Plan: Immunosuppressed as a result. Abx empirically started as above. Cont decadron. (8) Fatigue: Plan: uncertain cause. There is a question of REGINA on history. Will need to review prior sleep study and if he was ever treated for this. May consider overnight pulse oximetry to look for sleep related hypoxia that may have developed. Will also add a TSH now. Finally there is obvious concern for progression of myeloma. No other constitutional symptoms are present. Will discuss further with patient's consular officer. 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 The pain is very sharp and radiates into his lower back. It feels like it starts in the left anterior lower chest at the base of the ribs. There is no pain or tenderness to push on this area. There is pain when he lies flat but it is better when he sits up and moves around. He reports waking up yesterday with this discomfort after two weeks of extreme fatigue that is new. He states that yesterday he was able to shovel snow and function, however, the pain became worse as the day progressed and was very severe at the end of the day. The pain causes him to catch his breath, but he is otherwise not short of breath and denies respiratory symptoms such as coughing, congestion, ear fullness, sinus pressure or headache. He denies any recent illnesses, and has no changes in his bowel habits. He has chronic nocturia for the past couple of years but denies any symptoms of a urinary tract infection. He denies any night sweats or weight changes and has no changes in appetite. He denies any abdominal pain, bloating or discomfort. He has no underlying thyroid issues that he is aware of. He does not appear depressed. He reports not feeling refreshed when he wakes up and is sleeping most of the day. He changed from decadron 40mg PO weekly (taken on ) to 20mg weekly two weeks ago. Imaging reveals a filling defect consistent with a possible PE on the RLL and where the pain is located there is an infiltrative process consistent with a possible pneumonia. This does not appear cardiac related and he denies any pain with exertion in the last 6 months. He is a very active person. EKG reveals sinus rhythm, LVH (seen on prior echo) and no evidence of acute ischemia or pericarditis. Troponin is negative. Pain is located on the distal ribs anteriorly on the left and there is no pain to palpation of this area. CT reveals no rib fractures and he does not report any trauma. Allergies Allergy/AdvReac Type Severity Reaction Status Date / Time meloxicam [From Mobic] Allergy Unknown Unknown Verified 06/30/21 07:27 fexofenadine AdvReac Unknown "WIRED"/INS Verified 06/30/21 07:27 OMNIA Home Medications Medication Instructions Recorded Confirmed Type irbesartan 300 mg tablet 300 mg PO DAILY 04/01/19 06/30/21 History omeprazole 20 mg capsule,delayed 20 mg PO DAILY 04/01/19 06/30/21 History release simvastatin 40 mg tablet 40 mg PO QPM 04/01/19 06/30/21 History tamsulosin 0.4 mg capsule 0.4 mg PO DAILY #30 cap 11/20/19 06/30/21 Rx Lactobacillus acidophilus 10 10,000 mmu cells PO DAILY 01/22/21 06/30/21 History billion cell capsule (Probiotic) aspirin 81 mg tablet,delayed 81 mg PO DAILY 01/22/21 06/30/21 History release dexamethasone 4 mg tablet 20 mg PO WK 06/30/21 06/30/21 History fluticasone propionate 50 2 spray INTRANASAL DAILY 06/30/21 06/30/21 History mcg/actuation nasal spray,suspension lenalidomide 15 mg capsule 15 mg PO DAILY 06/30/21 06/30/21 History (Revlimid) Past Med/Surg History Medical History BPH (benign prostatic hyperplasia) Chronic use of steroids GERD (gastroesophageal reflux disease) Hypercholesteremia Hypertension Moderate obstructive sleep apnea Smoldering myeloma Surgical History History of back surgery History of elbow surgery History of knee surgery History of sinus surgery History of tooth extraction No pertinent past surgical history Family History Father Hypertension Sister Hypertension Rheumatoid arthritis Multiple benign polyps of large intestine Denies family history of Colon cancer Ovarian cancer Prostate cancer Myocardial infarction Breast cancer Social History Smoking Status: Never smoker Second Hand Exposure: No; Do You Dip or Chew Tobacco: No; Tobacco Cessation Education Requested by Patient: No Hx Alcohol Use: No Hx Substance Use: No Preferred Language: Italian Communication Ability: Effective 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 Physical Exam Physical Exam: CONSTITUTIONAL: WNWD, vitals as above, generally well- appearing, moderate distress when moving around in bed 2/2 chest pain. EYES: normal conjunctivae, no scleral icterus ENT: external ear and nose normal, oropharynx clear, MMM NECK: trachea midline RESPIRATORY: coarse rhonchi on left base, no rales or wheezes, normal respiratory effort CARDIOVASCULAR: regular rate and rhythm, S1 and 2 heard without murmurs, gallops or rubs, no JVD, no peripheral edema CHEST: inspection of chest was normal GASTROINTESTINAL: soft, nontender, ND, no guarding MUSCULOSKELETAL: strength 5/5 throughout, head is normocephalic and atraumatic, no chest wall tenderness to palpation. SKIN: warm and dry NEUROLOGIC: CN 2-12 grossly intact, no sensory deficit, normal cognition, normal speech, no tremor PSYCHIATRIC: alert cooperative and oriented to person, place and time. Euthymic mood, makes good eye contact, language grossly intact, recent and remote memory grossly intact. LYMPHATIC: no LAD Results & Data Results & Data ([facility]) Vital Signs (Past 12 Hours) Vital Signs Temp Pulse Pulse Resp BP BP Pulse Ox 06/30/21 09:00 57 L 16 119/60 97 06/30/21 07:30 61 18 114/65 95 06/30/21 06:41 92 06/30/21 06:23 36.5 C 73 18 120/69 94 Laboratory Results Short CBC 06/30/21 Range/Units 06:25 WBC 5.26 (4.8-10.8) K/uL Hgb 11.7 L (14.0-18.0) g/dL Hct 35.7 L (42-52) % Plt Count 149 (130-400) K/uL BMP 06/30/21 06:25 Sodium 136 Potassium 3.7 Chloride 104 Carbon Dioxide 24 BUN 13 Creatinine 1.00 Glucose 109 H Calcium 9.4 Cardiac Enzymes 06/30/21 Range/Units 06:25 Troponin I < 0.03 (0-0.04) ng/ml Liver Function 06/30/21 Range/Units 06:25 Total Bilirubin 1.5 H (0.2-1.0) mg/dl AST 20 (13-39) U/L ALT 33 (7-52) U/L Alkaline Phosphatase 74 (34-104) U/L Albumin 3.8 (3.4-5.0) gm/dl Diagnostic Findings Chest X-Ray 06/30/21 06:37 XR chest 1V portable CLINICAL HISTORY: Atypical chest pain. COMPARISON STUDY: Chest radiograph January 22, 2021. FINDINGS: Lung volumes are normal. Slight blunting of the left costophrenic angle is noted. There is no pneumothorax. Mild left basilar opacity is present. Cardiomediastinal silhouette is stable. IMPRESSION: Mild left basilar opacity which favors atelectasis. Possible trace left pleural effusion. ACT 112: Negative or not required by law. Electronically signed by: Shaq Veras M.D. 06/30/2021 7:07 AM Chest CTA 06/30/21 07:39 CHEST CTA for PULMONARY ARTERIES CT DOSE: 298.22 mGy.cm HISTORY: Left sided pleuritic chest pain, shortness of breath, r/o PE TECHNIQUE: Multiaxial CT images of the chest were performed following the intravenous administration of contrast to evaluate the pulmonary arteries. Maximal intensity projection images were also obtained. A dose lowering technique was utilized adhering to the principles of ALARA. COMPARISON STUDY: None. FINDINGS: There is a 2 cm lucent lesion occupying the majority of the T5 vertebral body. This demonstrates sclerotic edges and narrow zone of transition. Therefore, this is likely benign. No fractures within the visualized osseous structures. Limited views the upper abdomen demonstrate a normal liver, spleen, and adrenal glands. There is a tiny hiatus hernia. Otherwise, normal esophagus. No mediastinal or hilar lymphadenopathy. The heart is mildly enlarged. No pericardial effusion. Trace left pleural effusion. Normal caliber thoracic aorta with no evidence for dissection. No pneumothorax. Filling defect seen within the pulmonary vessel within the right lower lobe on images 101 through 120. This could be within the pulmonary artery or pulmonary vein. Therefore, this is indeterminate for a pulmonary embolus. The remaining pulmonary arteries show no filling defects to suggest a pulmonary embolus. Patchy and linear densities at the base of the left lung. There are few faint peripheral groundglass densities within the base of the left upper lobe. A few small linear densities at the base the right lower lobe consistent with subsegmental atelectasis. IMPRESSION: 1. A filling defect seen within a right lower lobe pulmonary vessel. This is difficult to differentiate between a pulmonary artery and pulmonary vein but is concerning for pulmonary embolus. Therefore, follow-up bilateral lower extremity venous Doppler is recommended to assess for a DVT. 2. Trace left pleural effusion. 3. Patchy and linear airspace opacities within the base of the left lung. These are nonspecific and could represent atelectasis or pneumonia. 4. Mild cardiomegaly. 5. A 2 cm indeterminate lucent lesion within the T5 vertebral body. This demonstrates benign features. ACT 112: Negative or not required by law. Electronically signed by: Héctor Fatima M.D. 06/30/2021 8:46 AM Venous Doppler Study 06/30/21 08:57 BILATERAL LOWER EXTREMITY VENOUS DOPPLER HISTORY: Abnormal chest CTA with possible pulmonary embolus. Evaluate for DVT. COMPARISON STUDY: None. FINDINGS: There is normal compressibility, flow, and augmentation within the bilateral lower extremity deep venous systems. IMPRESSION: No DVT within the right or left lower extremity. ACT 112: Negative or not required by law. Electronically signed by: Héctor Fatima M.D. 06/30/2021 10:09 AM Medications Administered Lovenox started in ER Code Status & VTE Plan Code Status Full VTE Prophylaxis Plan VTE Prophylaxis will be ordered: Yes
[2021-06-30] MEDS ORDERED: traMADol HCL 50 MG TABLET PO STA (11:36)
[2021-06-30] MEDS ORDERED: ACETAMINOPHEN 500 MG TAB PO STA (11:36)
[2021-06-30] MEDS: LIDOCAINE 5% 1 PATCH TD SCH (12:05)
[2021-06-30] MEDS ORDERED: ACETAMINOPHEN 325 MG TAB PO PRN (13:52)
[2021-06-30] MEDS ORDERED: POLYETHYLENE (MIRALAX) 17 GM PACK PO PRN (13:52)
[2021-06-30] MEDS ORDERED: traMADol HCL 50 MG TABLET PO PRN (13:52)
[2021-06-30] MEDS: PIPERACILLIN/TAZOBACTAM 3.375 GM in DEXTROSE 5% 100 ML IV SCH ×2 (15:39→23:58)
[2021-06-30] MEDS ORDERED: GADOBUTROL 65ML VIAL IV ONE (17:11)
[2021-06-30] MEDS ORDERED: ACETAMINOPHEN 500 MG TAB PO SCH (20:00)
[2021-06-30] MEDS: ACETAMINOPHEN 500 MG TAB PO SCH (20:03)
[2021-06-30] MEDS: SIMVASTATIN 40 MG TAB PO SCH (20:03)
--- NOTE | 2021-06-30 20:52 | Magnetic Resonance Report ---
MR thoracic spine wo/w con CLINICAL HISTORY: new T5 lesion, h/o myeloma. COMPARISON: CT of the chest from 06/30/2021 TECHNIQUE: Multiplanar multisequence images of the Thoracic Spine were performed with and without IV contrast. Contrast Volume: 6.8 ml of Gadavist FINDINGS: Bones: There is no evidence for vertebral body fracture. The heights of the vertebral bodies are main tained. The vertebral bodies are in anatomic alignment. There is a lytic lesion present involving the T5 vertebral body as seen on CT. Increased signals pres ent on T2 and STIR weighted sequences and decreased signal is seen on T1-weighted sequence. Homogeneo us marrow signal is seen throughout the remainder of the thoracic spine without evidence for marrow e cornelia or marrow replacement. There is enhancement of the T5 lesion following contrast administration. Disc spaces: There are no focal disc protrusions or herniations identified. There is no significant s lashon canal stenosis or neural foraminal narrowing present. Soft tissues: The thoracic spinal cord appears normal. There are no paraspinal fluid collections or s oft tissue masses identified. No abnormal enhancement is identified. IMPRESSION: Lytic, enhancing lesion of the T5 vertebral body which is characteristic of the patient's history of multiple myeloma. No other lesions are identified. Electronically signed by: Juanjo Bryan M.D. 06/30/2021 8:51 PM
[2021-07-01 05:38] LABS: Hematocrit (blood only) 32.1 % (42-52); Hemoglobin 10.2 g/dL (14.0-18.0); Mean Corpuscular Hemoglobin 33.1 pg (25-34); Mean Corpuscular Hgb Conc 31.8 g/dL (32-36); Mean Corpuscular Volume 104.2 fL (80-100); Mean Platelet Volume 9.4 fL (7.4-10.4); Platelet Count 119 K/uL (130-400); RDW Coefficient of Variation 14.5 % (11.5-14.5); Red Blood Count 3.08 M/uL (4.7-6.1); White Blood Count 3.29 K/uL (4.8-10.8)
[2021-07-01 05:51] LABS: BUN Creatinine Ratio 11.9 (10-20); Calcium 8.9 mg/dl (8.5-10.1); Creatinine Clr Calc Pharmacy 50.3 ml/min; Est GFR (African American) 66.1 ml/min; Potassium 3.9 mmol/L (3.5-5.1)
[2021-07-01] MEDS: ACETAMINOPHEN 500 MG TAB PO SCH ×3 (06:28→21:58)
[2021-07-01] MEDS: PIPERACILLIN/TAZOBACTAM 3.375 GM in DEXTROSE 5% 100 ML IV SCH ×2 (07:55→16:07)
[2021-07-01] MEDS: ADVANCED PROBIOTIC 1250 MG CAPSULE PO SCH (09:42)
[2021-07-01] MEDS: ASPIRIN 81 MG ECTAB PO SCH (09:43)
[2021-07-01] MEDS: IRBESARTAN 150 MG TAB PO SCH (09:43)
[2021-07-01] MEDS: PANTOprazole 40 MG TAB PO SCH (09:43)
[2021-07-01] MEDS: LENALIDOMIDE 15 MG PO SCH (09:43)
[2021-07-01] MEDS: TAMSULOSIN HCL 0.4 MG CAP PO SCH (09:43)
[2021-07-01] MEDS: LIDOCAINE 5% 1 PATCH TD SCH (09:44)
[2021-07-01] MEDS: ENOXAPARIN 80 MG/0.8 ML SYR SQ SCH ×2 (09:44→21:58)
[2021-07-01] MEDS ORDERED: VANCOMYCIN HCL 1,000 MG in SODIUM CHLORIDE 0.9% 250 ML IV STA (10:15)
[2021-07-01] MEDS ORDERED: VANCOMYCIN CONSULT ACTIVE PRN (10:15)
[2021-07-01] MEDS ORDERED: VANCOMYCIN HCL 1,750 MG in SODIUM CHLORIDE 0.9% 250 ML IV ONE (10:45)
--- NOTE | 2021-07-01 10:55 | Orthopedic Consultation ---
Date of Consultation July 01, 2021 Assessment & Plan (1) Osteolytic lesion: At this time patient has a lesion in T5 which is likely related to his history of multiple myeloma. It is lytic in nature and at risk for collapse. Options for treatment would be bracing which may be chronic in nature versus considering him for possible kyphoplasty. I discussed the risks and benefits of the potential kyphoplasty with the patient and he is interested in possibly moving forward if medically cleared. I discussed the case with Dr. Mcmillan and we will touch base with medicine to see if he is a candidate or if we can proceed. He would have to come off his anticoagulation for the procedure. History of Present Illness Attending Physician: Nahomy Miranda MD History of Present Illness Patient is a pleasant 71-year-old male who was seen in room B5 in the emergency room. He was has been admitted through the emergency room due to chest pain. He was noted to have evidence of pulmonary emboli. He also presented with significant thoracic back pain and with a history of multiply Ede and undergone an MRI of the thoracic spine with and without contrast. Did note a new lesion in T5 and we are consulted for recommendations. He is not having any radicular complaints. He is not short of breath but has increased pain when he takes a deep breath. He has no numbness or tingling in his lower extremities. He does have his history significant for previous lower back surgery which is consistent with a partial discectomy. This was done back in the 70s. He denies any other numbness, tingling, or paresthesias. Allergies Allergy/AdvReac Type Severity Reaction Status Date / Time meloxicam [From Mobic] Allergy Unknown Unknown Verified 06/30/21 07:27 fexofenadine AdvReac Unknown "WIRED"/INS Verified 06/30/21 07:27 OMNIA Home Medications Medication Instructions Recorded Confirmed Type irbesartan 300 mg tablet 300 mg PO DAILY 04/01/19 06/30/21 History omeprazole 20 mg capsule,delayed 20 mg PO DAILY 04/01/19 06/30/21 History release simvastatin 40 mg tablet 40 mg PO QPM 04/01/19 06/30/21 History tamsulosin 0.4 mg capsule 0.4 mg PO DAILY #30 cap 11/20/19 06/30/21 Rx Lactobacillus acidophilus 10 10,000 mmu cells PO DAILY 01/22/21 06/30/21 History billion cell capsule (Probiotic) aspirin 81 mg tablet,delayed 81 mg PO DAILY 01/22/21 06/30/21 History release dexamethasone 4 mg tablet 20 mg PO WK 06/30/21 06/30/21 History fluticasone propionate 50 2 spray INTRANASAL DAILY 06/30/21 06/30/21 History mcg/actuation nasal spray,suspension lenalidomide 15 mg capsule 15 mg PO DAILY 06/30/21 06/30/21 History (Revlimid) Patient History Medical History BPH (benign prostatic hyperplasia) Chronic use of steroids GERD (gastroesophageal reflux disease) Hypercholesteremia Hypertension Moderate obstructive sleep apnea Smoldering myeloma Surgical History History of back surgery History of elbow surgery History of knee surgery History of sinus surgery History of tooth extraction No pertinent past surgical history Family History Father Hypertension Sister Hypertension Rheumatoid arthritis Multiple benign polyps of large intestine Denies family history of Colon cancer Ovarian cancer Prostate cancer Myocardial infarction Breast cancer Social History Smoking Status: Never smoker Second Hand Exposure: No; Do You Dip or Chew Tobacco: No; Tobacco Cessation Education Requested by Patient: No Hx Alcohol Use: No Hx Substance Use: No Preferred Language: Bulgarian Communication Ability: Effective 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 He is tender to palpation and percussion in between the shoulder blades. His lower extreme motor exam reveals no focal atrophy strength 5 out of 5 detailed muscle testing without exception. He has no nerve root tension signs. He is able to logroll without difficulties. His forward to motion the hips and knees. Results & Data ([facility]) Vital Signs (Past 12 Hours) Vital Signs Pulse Resp BP Pulse Ox 07/01/21 02:14 59 L 16 116/68 96 Diagnostic Findings MRI of the thoracic spine with and without contrast is available for review. This reveals a lesion in the vertebral body of T5. Is a lytic lesion nature that does enhance. There is no significant collapse based on the MRI at this time. Spinal canal is without any compromise.
--- NOTE | 2021-07-01 11:09 | Pharmacy Report ---
Pharmacy Vanc AUC Short Note - Date of Service July 01, 2021 - Assessment & Plan Assessment 71 year old M receiving Vancomoycin and Zosyn for treatment of Bacteremia. Pertinent microbiologic data includes: One blood cultures with gram positive cocci clusters. The other still pending. Pt on Revlimid for smoldering myeloma. Plan Vancomycin * AUC/IESHA is the preferred PK/PD target for vancomycin * AUC guided dosing is effective and associated with decreased risk of nephrotoxicity compared to traditional trough targets * Vancomycin bolus 1750mg x 1 followed by Vancomycin 1250mg IV Q24H is predicted to achieve target AUC/IESHA of 400-600 mg/L.hr and may be associated with a 13 % risk of nephrotoxicity Await result of culture to order trough Zosyn * Zosyn 3.375G IV q8h * Dose appropriate for renal function and diagnosis (possible pneumonia in the presence of immunosupression Pharmacy will continue to follow and will adjust dose/frequency as necessary. Thank you.
[2021-07-01] MEDS: SIMVASTATIN 40 MG TAB PO SCH (20:50)
--- NOTE | 2021-07-01 23:53 | Electrocardiogram Report ---
Test Reason : Blood Pressure : / mmHG Vent. Rate : 070 BPM Atrial Rate : 070 BPM P-R Int : 138 ms QRS Dur : 092 ms QT Int : 386 ms P-R-T Axes : 028 051 060 degrees QTc Int : 416 ms Normal sinus rhythm Moderate voltage criteria for LVH, may be normal variant Borderline ECG When compared with ECG of 22-JAN-2021 23:39, No significant change was found Confirmed by Rito Roberts ([id number]) on 07/01/2021 11:52:38 PM Referred By: Confirmed By:Rito Roberts
--- NOTE | 2021-07-01 23:58 | Hospitalist Progress Note ---
Date of Service July 01, 2021 Assessment & Plan (1) Atypical chest pain: (2) Pulmonary embolism: Plan: Pleuritic chest pain mostly due to PE CTA chest showed Acute onset chest pain with new filling defect seen on right lower lung. Presumably there may be additional clot burden even on the left contributing to his pain, however, this appears clear of clot on the left. Doppler of LE showed no DVT within the right or left lower extremity. Continue therapeutic dose Lovenox (3) Osteolytic lesion: Plan: MRI thoracic spine showed T5 lytic lesion again noted consistent with the patient's known history of multiple myeloma. Ortho on board Discussed treatment options with patient about bracing which may be chronic in nature versus considering him for possible kyphoplasty Pt would like to proceed with Kyphoplasty will discuss with Ortho about the timing to hold and resume anticoagulant for the procedure (4) Pneumonia: Plan: CT chest showed Patchy and linear airspace opacities within the base of the left lung. These are nonspecific and could represent atelectasis or pneumonia. Procalcitonin negative, no leukocytosis and afebrile Currently on IV Zosyn (5) Smoldering myeloma: Plan: Cont Revlimid and decadron at current 20mg weekly dose (6) Hypertension: Plan: chronic, controlled. Cont irbesartan per home regimen. (7) Chronic use of steroids: Plan: Immunosuppressed as a result. Abx empirically started as above. Cont decadron. (8) Fatigue: Plan: Mostly due to acute illness Will check TSH (9) DVT prophylaxis: Plan: Full Dose Lovenox q12h Full Code Dispo- PCU Admission and Anticipated Discharge Date Admission Date: June 30, 2021 Subjective Pt was seen and examined for follow up of sharp chest pain radiating to his back Lying in bed with no acute distress Pt said that pain is worst with deep breathing, but improving compare to yesterday Denies any SOB, dizziness, fever and palpitation Review of Systems Review of Systems: All systems reviewed & are unremarkable except as noted in Subjective Physical Exam Physical Exam: General- No acute distress Head- atraumatic Eyes- PERRL, EOMI, ENT- oropharynx clear Neck- supple, no JVD Lungs- clear to auscultation Heart- regular rhythm; no murmur Abdomen- normal bowel sounds, soft, nontender Extremities- no calf tenderness Neuro- alert, oriented x 3; PERRL, EOMI; no facial palsy; no dysarthria Skin- warm & dry Results & Data Results & Data ([facility]) Vital Signs (Past 12 Hours) Vital Signs Pulse Resp BP Pulse Ox 07/01/21 22:04 68 20 134/67 96 07/01/21 16:06 70 18 137/71 96 (1) Pulmonary embolism Acute cor pulmonale presence: unspecified Chronicity: acute Pulmonary embolism type: unspecified Qualified Code(s): I26.99 - Other pulmonary embolism without acute cor pulmonale (2) Pneumonia Laterality: right Lung location: unspecified part of lung Pneumonia type: due to unspecified organism Qualified Code(s): J18.9 - Pneumonia, unspecified organism
[2021-07-02] MEDS: PIPERACILLIN/TAZOBACTAM 3.375 GM in DEXTROSE 5% 100 ML IV SCH ×3 (00:50→16:08)
[2021-07-02] MEDS ORDERED: VANCOMYCIN HCL 1,250 MG in SODIUM CHLORIDE 0.9% 250 ML IV SCH (04:00)
[2021-07-02] MEDS: ACETAMINOPHEN 500 MG TAB PO SCH ×3 (06:07→20:42)
[2021-07-02 06:40] LABS: Creatinine Clr Calc Pharmacy 55.6 ml/min; Est GFR (African American) 74.6 ml/min; Est GFR (Non-African American) 64.3 ml/min
[2021-07-02] MEDS: TAMSULOSIN HCL 0.4 MG CAP PO SCH (08:19)
[2021-07-02] MEDS: IRBESARTAN 150 MG TAB PO SCH (08:19)
[2021-07-02] MEDS: PANTOprazole 40 MG TAB PO SCH (08:20)
[2021-07-02] MEDS: ADVANCED PROBIOTIC 1250 MG CAPSULE PO SCH (08:20)
[2021-07-02] MEDS: LENALIDOMIDE 15 MG PO SCH (08:20)
[2021-07-02] MEDS: LIDOCAINE 5% 1 PATCH TD SCH (08:20)
[2021-07-02] MEDS: ASPIRIN 81 MG ECTAB PO SCH (08:20)
[2021-07-02] MEDS: ENOXAPARIN 80 MG/0.8 ML SYR SQ SCH ×2 (09:10→20:42)
--- NOTE | 2021-07-02 10:21 | XRay Report ---
THORACIC SPINE 3 VIEWS HISTORY: Mid back pain COMPARISON: Thoracic spine MRI 06/30/2021 FINDINGS: There is no fracture. No subluxation. T5 lytic lesion is again noted. No additional lytic lesions within the spine. Mild degenerative disc disease throughout the thoracic spine. Paraspinal so ft tissues are unremarkable. IMPRESSION: 1. No acute fractures within the thoracic spine. 2. T5 lytic lesion again noted consistent with the patient's known history of multiple myeloma. ACT 112: Negative or not required by law. Electronically signed by: Héctor Fatima M.D. 07/02/2021 10:20 AM
[2021-07-02] MEDS: SIMVASTATIN 40 MG TAB PO SCH (20:42)
--- NOTE | 2021-07-02 23:57 | Hospitalist Progress Note ---
Date of Service July 02, 2021 Assessment & Plan (1) Atypical chest pain: (2) Pulmonary embolism: Plan: Pleuritic chest pain mostly due to PE CTA chest showed Acute onset chest pain with new filling defect seen on right lower lung. Presumably there may be additional clot burden even on the left contributing to his pain, however, this appears clear of clot on the left. Doppler of LE showed no DVT within the right or left lower extremity. Continue therapeutic dose Lovenox Might consider to transition to Heparin drip if proceed with the procedure (3) Osteolytic lesion: Plan: MRI thoracic spine showed T5 lytic lesion again noted consistent with the patient's known history of multiple myeloma. Ortho on board Discussed treatment options with patient about bracing which may be chronic in nature versus considering him for possible kyphoplasty Pt would like to proceed with Kyphoplasty will discuss with Ortho about the timing to hold and resume anticoagulant for the procedure case discussed with dr. Mcmillan that will be ok to proceed with the procedure if safe to hold the anticogulant. Will discuss it to Hematology (4) Pneumonia: Plan: CT chest showed Patchy and linear airspace opacities within the base of the left lung. These are nonspecific and could represent atelectasis or pneumonia. Procalcitonin negative, no leukocytosis and afebrile Currently on IV Zosyn (5) Smoldering myeloma: Plan: Cont Revlimid and decadron at current 20mg weekly dose (6) Hypertension: Plan: chronic, controlled. Cont irbesartan per home regimen. (7) Chronic use of steroids: Plan: Immunosuppressed as a result. Abx empirically started as above. Cont decadron. (8) Fatigue: Plan: Mostly due to acute illness Will check TSH (9) DVT prophylaxis: Plan: Full Dose Lovenox q12h Full Code Dispo- PCU Admission and Anticipated Discharge Date Admission Date: June 30, 2021 Subjective Pt was seen and examined for follow up of sharp chest pain radiating to his back Lying in bed with no acute distress Pt said that his pleuritic chest pain improved significantly He said that his breathing is better Denies any SOB, dizziness, fever and palpitation Review of Systems Review of Systems: All systems reviewed & are unremarkable except as noted in Subjective Physical Exam Physical Exam: General- No acute distress Head- atraumatic Eyes- PERRL, EOMI, ENT- oropharynx clear Neck- supple, no JVD Lungs- clear to auscultation Heart- regular rhythm; no murmur Abdomen- normal bowel sounds, soft, nontender Extremities- no calf tenderness Neuro- alert, oriented x 3; PERRL, EOMI; no facial palsy; no dysarthria Skin- warm & dry Results & Data Results & Data ([facility]) Vital Signs (Past 12 Hours) Vital Signs Temp Pulse Pulse Resp BP Pulse Ox 07/02/21 22:33 36.4 C L 64 16 130/75 95 07/02/21 20:15 36.7 C 72 16 138/75 96 07/02/21 16:00 36.5 C 72 31 H 124/76 94 (1) Pulmonary embolism Acute cor pulmonale presence: unspecified Chronicity: acute Pulmonary embolism type: unspecified Qualified Code(s): I26.99 - Other pulmonary embolism without acute cor pulmonale (2) Pneumonia Laterality: right Lung location: unspecified part of lung Pneumonia type: due to unspecified organism Qualified Code(s): J18.9 - Pneumonia, unspecified organism
--- NOTE | 2021-07-02 23:57 | Hospitalist Progress Note ---
Date of Service July 02, 2021 Assessment & Plan (1) Osteolytic lesion: (2) Atypical chest pain: (3) Pulmonary embolism: (4) Pneumonia: Plan: Acute onset chest pain with new filling defect seen on right lower lung. Presumably there may be additional clot burden even on the left contributing to his pain, however, this appears clear of clot on the left. There is some patchiness consistent with ?pneumonia vs atelectasis. With his underlying immunosuppression, we will empirically treat for pneumonia pending blood and sputum cultures and clinical improvement. Notably procalcitonin is negative. For his pain will continue with full dose Lovenox to treat the presumed PE and will schedule Tylenol with Tramadol for breakthrough pain and a lidocaine patch. 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 No other clear exacerbating factors. Holding on any hypercoagulable workup for now and will discuss further with his [place] carrier associate, Dr. Stoddard. Trop is negative and EKG nonischemic and CT chest shows no pericardial effusion; doubt cardiac in nature but may consider an echo if not improved. ADDENDUM: Dr. Stoddard recommended an MRI of the area in question, and a t-spine MRI with and wo contrast was performed later today. This revealed a lytic enhancing lesion of the T5 vertebral body which appears to be the likely cause of the patient's discomfort. Consult was placed to ortho spine surgeon for treatment recommendations as he is not functional with this. Cont pain control efforts overnight. (5) Smoldering myeloma: Plan: Cont Revlimid and decadron at current 20mg weekly dose (6) Hypertension: Plan: chronic, controlled. Cont irbesartan per home regimen. (7) Chronic use of steroids: Plan: Immunosuppressed as a result. Abx empirically started as above. Cont decadron. (8) Fatigue: Plan: uncertain cause. There is a question of REGINA on history. Will need to review prior sleep study and if he was ever treated for this. May consider overnight pulse oximetry to look for sleep related hypoxia that may have developed. Will also add a TSH now. Finally there is obvious concern for progression of myeloma. No other constitutional symptoms are present. Will discuss further with patient's rural carrier associate. (9) DVT prophylaxis: Plan: Full Dose Lovenox q12h Full Code-confirmed with him on admission Dispo- PCU DO [facility] Hospitalist Admission and Anticipated Discharge Date Admission Date: June 30, 2021 Results & Data Results & Data ([facility]) Vital Signs (Past 12 Hours) Vital Signs Temp Pulse Pulse Resp BP Pulse Ox 07/02/21 22:33 36.4 C L 64 16 130/75 95 07/02/21 20:15 36.7 C 72 16 138/75 96 07/02/21 16:00 36.5 C 72 31 H 124/76 94 (1) Pulmonary embolism Acute cor pulmonale presence: unspecified Chronicity: acute Pulmonary embolism type: unspecified Qualified Code(s): I26.99 - Other pulmonary embolism without acute cor pulmonale (2) Pneumonia Laterality: right Lung location: unspecified part of lung Pneumonia type: due to unspecified organism Qualified Code(s): J18.9 - Pneumonia, unspecified organism
[2021-07-03] MEDS: PIPERACILLIN/TAZOBACTAM 3.375 GM in DEXTROSE 5% 100 ML IV SCH ×4 (00:29→23:24)
[2021-07-03] MEDS: ACETAMINOPHEN 500 MG TAB PO SCH ×3 (07:02→20:35)
[2021-07-03] MEDS: IRBESARTAN 150 MG TAB PO SCH (07:37)
[2021-07-03] MEDS: PANTOprazole 40 MG TAB PO SCH (07:37)
[2021-07-03] MEDS: TAMSULOSIN HCL 0.4 MG CAP PO SCH (07:37)
[2021-07-03] MEDS: LIDOCAINE 5% 1 PATCH TD SCH (07:37)
[2021-07-03] MEDS: ASPIRIN 81 MG ECTAB PO SCH (07:37)
[2021-07-03] MEDS: ADVANCED PROBIOTIC 1250 MG CAPSULE PO SCH (07:38)
[2021-07-03] MEDS: LENALIDOMIDE 15 MG PO SCH (07:40)
[2021-07-03 09:56] LABS: Creatinine Clr Calc Pharmacy 59.2 ml/min; Est GFR (African American) 80.5 ml/min; Est GFR (Non-African American) 69.5 ml/min
[2021-07-03] MEDS: ENOXAPARIN 80 MG/0.8 ML SYR SQ SCH ×2 (10:29→20:33)
[2021-07-03] MEDS: SIMVASTATIN 40 MG TAB PO SCH (20:33)
--- NOTE | 2021-07-04 01:51 | Hospitalist Progress Note ---
Date of Service July 03, 2021 Assessment & Plan (1) Atypical chest pain: (2) Pulmonary embolism: Plan: Pleuritic chest pain mostly due to PE CTA chest showed Acute onset chest pain with new filling defect seen on right lower lung. Presumably there may be additional clot burden even on the left contributing to his pain, however, this appears clear of clot on the left. Doppler of LE showed no DVT within the right or left lower extremity. Continue therapeutic dose Lovenox (3) Osteolytic lesion: Plan: MRI thoracic spine showed T5 lytic lesion again noted consistent with the patient's known history of multiple myeloma. Ortho on board Discussed treatment options with patient about bracing which may be chronic in nature versus considering him for possible kyphoplasty Pt would like to proceed with Kyphoplasty will discuss with Ortho about the timing to hold and resume anticoagulant for the procedure case discussed with dr. Mcmillan that will be ok to proceed with the procedure if safe to hold the anticoagulant. Case discussed with Dr. Conteh that suggested radiation therapy that is less invasive instead of Kyphoplasty procedure that put pt at risk of bleeding since patient is on anticoagulant for the acute PE Recommended Oncology Radiation consult Pt will need Bone Marrow biopsy or whole jane PET Scan outpatient Will need close follow up with Oncology (4) Pneumonia: Plan: CT chest showed Patchy and linear airspace opacities within the base of the left lung. These are nonspecific and could represent atelectasis or pneumonia. Procalcitonin negative, no leukocytosis and afebrile Currently on IV Zosyn (5) Smoldering myeloma: Plan: Cont Revlimid and decadron at current 20mg weekly dose (6) Hypertension: Plan: chronic, controlled. Cont irbesartan per home regimen. (7) Chronic use of steroids: Plan: Immunosuppressed as a result. Abx empirically started as above. Cont decadron. (8) Fatigue: Plan: Mostly due to acute illness Will check TSH (9) DVT prophylaxis: Plan: Full Dose Lovenox q12h Full Code Dispo- PCU Admission and Anticipated Discharge Date Admission Date: June 30, 2021 Subjective Pt was seen and examined for follow up of sharp chest pain radiating to his back Lying in bed with no acute distress Pt said that his pain is much better He said that his breathing is better Denies any SOB, dizziness, fever and palpitation Review of Systems Review of Systems: All systems reviewed & are unremarkable except as noted in Subjective Physical Exam Physical Exam: General- No acute distress Head- atraumatic Eyes- PERRL, EOMI, ENT- oropharynx clear Neck- supple, no JVD Lungs- clear to auscultation Heart- regular rhythm; no murmur Abdomen- normal bowel sounds, soft, nontender Extremities- no calf tenderness Neuro- alert, oriented x 3; PERRL, EOMI; no facial palsy; no dysarthria Skin- warm & dry Results & Data Results & Data ([facility]) Vital Signs (Past 12 Hours) Vital Signs Temp Pulse Resp BP Pulse Ox 07/03/21 23:25 37.1 C 66 18 112/60 93 07/03/21 15:15 36.6 C 69 16 117/64 96 (1) Pulmonary embolism Acute cor pulmonale presence: unspecified Chronicity: acute Pulmonary embolism type: unspecified Qualified Code(s): I26.99 - Other pulmonary embolism without acute cor pulmonale (2) Pneumonia Laterality: right Lung location: unspecified part of lung Pneumonia type: due to unspecified organism Qualified Code(s): J18.9 - Pneumonia, unspecified organism
[2021-07-04] MEDS: ACETAMINOPHEN 500 MG TAB PO SCH ×2 (05:38→15:31)
[2021-07-04 06:39] LABS: Hematocrit (blood only) 33.7 % (42-52); Hemoglobin 10.7 g/dL (14.0-18.0); Mean Corpuscular Hemoglobin 32.3 pg (25-34); Mean Corpuscular Hgb Conc 31.8 g/dL (32-36); Mean Corpuscular Volume 101.8 fL (80-100); Mean Platelet Volume 10.2 fL (7.4-10.4); Platelet Count 159 K/uL (130-400); RDW Standard Deviation 52.1 fL (36.4-46.3); Red Blood Count 3.31 M/uL (4.7-6.1)
[2021-07-04 06:58] LABS: Creatinine Clr Calc Pharmacy 53.2 ml/min; Est GFR (African American) 70.8 ml/min; Est GFR (Non-African American) 61.1 ml/min
[2021-07-04 07:40] VITALS: O2SAT 96
[2021-07-04] MEDS: PIPERACILLIN/TAZOBACTAM 3.375 GM in DEXTROSE 5% 100 ML IV SCH (07:44)
[2021-07-04] MEDS: IRBESARTAN 150 MG TAB PO SCH (07:45)
[2021-07-04] MEDS: ASPIRIN 81 MG ECTAB PO SCH (07:45)
[2021-07-04] MEDS: ADVANCED PROBIOTIC 1250 MG CAPSULE PO SCH (07:45)
[2021-07-04] MEDS: LIDOCAINE 5% 1 PATCH TD SCH (07:46)
[2021-07-04] MEDS: PANTOprazole 40 MG TAB PO SCH (07:46)
[2021-07-04] MEDS: TAMSULOSIN HCL 0.4 MG CAP PO SCH (07:46)
[2021-07-04] MEDS: LENALIDOMIDE 15 MG PO SCH (07:46)
--- NOTE | 2021-07-04 08:55 | Radiation OncologyConsultation ---
Date of Consultation July 04, 2021 Assessment & Plan (1) Smoldering myeloma: Assessment: Mr. Sanchez is a 71-year-old gentleman who presents with smoldering myeloma currently on Revlimid and Decadron underneath the supervision of Dr. Stoddard. The patient was admitted to the hospital due to pulmonary embolus and is currently on anticoagulation. The patient did have imaging studies which did reveal a lesion involving T5 vertebral body. The patient is mildly symptomatic but is not currently in the hospital. The patient was evaluated by orthopedic spine surgery who did discuss potential vertebral body kyphoplasty if the patient could be cleared to withhold anticoagulation. I have been asked to evaluate the patient regarding the role of radiation therapy. Treatment Options: 1. Vertebral body kyphoplasty with or without radiation therapy. 2. External beam radiation therapy. 3. Continued observation. Recommendation: If there is concern regarding structural integrity of the bone, vertebral body kyphoplasty is a reasonable option if the patient is cleared to stop anticoagulation. If the patient cannot stop anticoagulation, palliative external beam radiation therapy in the outpatient setting is also a reasonable option. Plan: 1. No plan for radiation therapy at this time unless indicated from orthopedic surgery that they cannot proceed with vertebral body kyphoplasty. Radiation therapy may also be indicated in the future if the patient's pain is not controlled with pain medications. 2. Continue follow-up with medical oncology in the outpatient setting. 3. Patient and family encouraged to call us with any further questions or concerns. Rationale/Explanation of Treatment: I explained the indications, alternatives, benefits, risks and side effects of external beam radiation therapy. I then discussed radiation therapy side effects for treatment which include, but are not limited to, skin erythema, dry/moist desquamation of the skin, hyp erpigmentation, telangiectasias, damage to the heart and development of cardiovascular disease, damage to the lungs including radiation pneumonitis, pulmonary fibrosis, decrease in pulmonary function, cough, fistula formation, tracheal stenosis, esophageal stenosis, esophageal perforation, dysphagia, nausea, vomiting, ulcers in stomach/bowel, gastritis, gastric perforation, bowel perforation, bowel obstruction, weight loss, dehydration, decreased appetite, liver damage including hepatitis and liver failure, damage to the kidneys including decreased renal function and renal failure, spinal cord damage including myelopathy, fatigue and secondary malignancy. The patient had multiple questions which were answered to his full satisfaction. Thank you for allowing us to participate in the care of this patient. This chart was completed in part utilizing [employer] Speech Voice Recognition software. Attempts were made to minimize the grammatical errors, random word insertions, pronoun errors and incomplete sentences. Any formal questions or concerns about the content, text or information contained within the body of this dictation should be directly addressed to the provider for clarification. Vanessa Conteh MD Department of Radiation Oncology [facility] History of Present Illness Attending Physician: Nahomy Miranda MD History of Present Illness 12/2014. 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 04/21/2021. Medical oncology follow-up with Dr. Stoddard. Continue on Revlimid and Decadron. 06/30/2021. Chest CTA. IMPRESSION: 1. A filling defect seen within a right lower lobe pulmonary vessel. This is difficult to differentiate between a pulmonary artery and pulmonary vein but is concerning for pulmonary embolus. Therefore, follow-up bilateral lower extremity venous Doppler is recommended to assess for a DVT. 2. Trace left pleural effusion. 3. Patchy and linear airspace opacities within the base of the left lung. These are nonspecific and could represent atelectasis or pneumonia. 4. Mild cardiomegaly. 5. A 2 cm indeterminate lucent lesion within the T5 vertebral body. This demonstrates benign features. 06/30/2021. MRI Thoracic Spine. IMPRESSION: Lytic, enhancing lesion of the T5 vertebral body which is characteristic of the patient's history of multiple myeloma. No other lesions are identified. 07/01/2021. Orthopedic surgery spine consultation by Dr. Mcmillan. Consideration for vertebral body kyphoplasty for T5 if patient cleared to stop anticoagulation medications. 07/02/2021. Thoracic Spine X-ray. IMPRESSION: 1. No acute fractures within the thoracic spine. 2. T5 lytic lesion again noted consistent with the patient's known history of multiple myeloma. Allergies Allergy/AdvReac Type Severity Reaction Status Date / Time meloxicam [From Mobic] Allergy Unknown Unknown Verified 06/30/21 07:27 fexofenadine AdvReac Unknown "WIRED"/INS Verified 06/30/21 07:27 OMNIA Home Medications Medication Instructions Recorded Confirmed Type irbesartan 300 mg tablet 300 mg PO DAILY 04/01/19 06/30/21 History omeprazole 20 mg capsule,delayed 20 mg PO DAILY 04/01/19 06/30/21 History release simvastatin 40 mg tablet 40 mg PO QPM 04/01/19 06/30/21 History tamsulosin 0.4 mg capsule 0.4 mg PO DAILY #30 cap 11/20/19 06/30/21 Rx Lactobacillus acidophilus 10 10,000 mmu cells PO DAILY 01/22/21 06/30/21 History billion cell capsule (Probiotic) aspirin 81 mg tablet,delayed 81 mg PO DAILY 01/22/21 06/30/21 History release dexamethasone 4 mg tablet 20 mg PO WK 06/30/21 06/30/21 History fluticasone propionate 50 2 spray INTRANASAL DAILY 06/30/21 06/30/21 History mcg/actuation nasal spray,suspension lenalidomide 15 mg capsule 15 mg PO DAILY 06/30/21 06/30/21 History (Revlimid) Patient History Medical History BPH (benign prostatic hyperplasia) Chronic use of steroids GERD (gastroesophageal reflux disease) Hypercholesteremia Hypertension Moderate obstructive sleep apnea Smoldering myeloma Surgical History History of back surgery History of elbow surgery History of knee surgery History of sinus surgery History of tooth extraction No pertinent past surgical history Family History Father Hypertension Sister Hypertension Rheumatoid arthritis Multiple benign polyps of large intestine Denies family history of Colon cancer Ovarian cancer Prostate cancer Myocardial infarction Breast cancer Social History Smoking Status: Never smoker Second Hand Exposure: No; Do You Dip or Chew Tobacco: No; Tobacco Cessation Education Requested by Patient: No Hx Alcohol Use: No Hx Substance Use: No Preferred Language: Chadian Communication Ability: Effective Interface Developer Required: No Beliefs That Will Affect Care: None Current Living Situation: Spouse Other Information That Helps Us Care for You: Yes Feels Safe at Home: Yes Safety Concerns: Feels Safe At This Time Assistive Devices: Glasses Review of Systems Review of Systems: Mild pleuritic chest pain otherwise no mid back pain at this point. Physical Exam Constitutional: WD/WN, vitals as above Skin: no rashes, warm and dry Psychiatric: A+Ox3, euthymic affect
[2021-07-04] MEDS: ENOXAPARIN 80 MG/0.8 ML SYR SQ SCH (11:00)
--- NOTE | 2021-07-04 13:37 | Discharge Summary ---
Date of Service July 04, 2021 Admission HPI Per Admitting Provider 71 yo M with a h/o smoldering MGUS on Revlimid and weekly decadron for the past two years, who presents with acute chest pain on the left lower lung x one day. The pain is very sharp and radiates into his lower back. It feels like it starts in the left anterior lower chest at the base of the ribs. There is no pain or tenderness to push on this area. There is pain when he lies flat but it is better when he sits up and moves around. He reports waking up yesterday with this discomfort after two weeks of extreme fatigue that is new. He states that yesterday he was able to shovel snow and function, however, the pain became worse as the day progressed and was very severe at the end of the day. The pain causes him to catch his breath, but he is otherwise not short of breath and denies respiratory symptoms such as coughing, congestion, ear fullness, sinus pressure or headache. He denies any recent illnesses, and has no changes in his bowel habits. He has chronic nocturia for the past couple of years but denies any symptoms of a urinary tract infection. He denies any night sweats or weight changes and has no changes in appetite. He denies any abdominal pain, bloating or discomfort. He has no underlying thyroid issues that he is aware of. He does not appear depressed. He reports not feeling refreshed when he wakes up and is sleeping most of the day. He changed from decadron 40mg PO weekly (taken on ) to 20mg weekly two weeks ago. Imaging reveals a filling defect consistent with a possible PE on the RLL and where the pain is located there is an infiltrative process consistent with a possible pneumonia. This does not appear cardiac related and he denies any pain with exertion in the last 6 months. He is a very active person. EKG reveals sinus rhythm, LVH (seen on prior echo) and no evidence of acute ischemia or pericarditis. Troponin is negative. Pain is located on the distal ribs anteriorly on the left and there is no pain to palpation of this area. CT reveals no rib fractures and he does not report any trauma. Discharge Exam General- No acute distress Head- atraumatic Eyes- PERRL, EOMI, ENT- oropharynx clear Neck- supple, no JVD Lungs- clear to auscultation Heart- regular rhythm; no murmur Abdomen- normal bowel sounds, soft, nontender Extremities- no calf tenderness Neuro- alert, oriented x 3; PERRL, EOMI; no facial palsy; no dysarthria Skin- warm & dry Discharge Data Allergies Allergy/AdvReac Type Severity Reaction Status Date / Time meloxicam [From Mobic] Allergy Unknown Unknown Verified 06/30/21 07:27 fexofenadine AdvReac Unknown "WIRED"/INS Verified 06/30/21 07:27 OMNIA Consultations 06/30/21 09:33 ED Decision to Admit Stat 06/30/21 21:31 Consult Orthopedic Surgery Routine 07/03/21 10:46 Consult Radiation Oncology Routine Ordered Studies 06/30/21 07:39 CT angio chest PE protocol Stat 06/30/21 08:57 US venous doppler LE BI Stat 06/30/21 14:28 MR thoracic spine wo/w con Urgent Hospital Course (1) Atypical chest pain: (2) Pulmonary embolism: Pleuritic chest pain mostly due to PE CTA chest showed Acute onset chest pain with new filling defect seen on right lower lung. Presumably there may be additional clot burden even on the left contributing to his pain, however, this appears clear of clot on the left. Doppler of LE showed no DVT within the right or left lower extremity. Currently on therapeutic dose Lovenox Case discussed with Oncology dr. Stoddard that suggested to transition to Eliquis 10mg BID for 7 days then 5mg BID (3) Osteolytic lesion: MRI thoracic spine showed T5 lytic lesion again noted consistent with the patient's known history of multiple myeloma. Ortho on board Discussed treatment options with patient about bracing which may be chronic in nature versus considering him for possible kyphoplasty Pt would like to proceed with Kyphoplasty will discuss with Ortho about the timing to hold and resume anticoagulant for the procedure case discussed with dr. Mcmillan that will be ok to proceed with the procedure if safe to hold the anticoagulant. Case discussed with Dr. Conteh that suggested radiation therapy that is less invasive instead of Kyphoplasty procedure that put pt at risk of bleeding since patient is on anticoagulant for the acute PE Oncology Radiation consulted No plan for radiation therapy at this time unless indicated from orthopedic surgery that they cannot proceed with vertebral body kyphoplasty. Radiation therapy may also be indicated in the future if the patient's pain is not controlled with pain medications. Pt will need Bone Marrow biopsy or whole jane PET Scan outpatient ( Oncology will order it) Will need close follow up with Oncology (4) Pneumonia: CT chest showed Patchy and linear airspace opacities within the base of the left lung. These are nonspecific and could represent atelectasis or pneumonia. Procalcitonin negative, no leukocytosis and afebrile Currently on IV Zosyn, will transition to doxycycline (5) Smoldering myeloma: Multiple Myeloma Cont Revlimid and decadron at current 20mg weekly dose (6) Hypertension: chronic, controlled. Cont irbesartan per home regimen. (7) Chronic use of steroids: Immunosuppressed as a result. Abx empirically started as above. Cont decadron. (8) Fatigue: Mostly due to acute illness Will check TSH (9) DVT prophylaxis: Full Dose Lovenox q12h Full Code Disposition Discharge home today Discharge Plan Discharge Items Reason For Visit: CHEST PAIN, POSSIBLE PE VS PNEUMONIA Follow-up/Referrals: [facility] Hematology/Oncology [Other] (Dr Stoddard's office (Oncology) will call you with an appointment. ) Rhonda Laboy DO [Primary Care Provider] - (Date & Time 07/08/2021 11:20 AM Provider Rhonda Laboy DO Department [facility] ) Medications and DC Order Prescriptions: New Eliquis 5 mg tablet 5 mg PO UD Qty: 74 RF: 0 No Action omeprazole 20 mg capsule,delayed release(DR/EC) 20 mg PO DAILY RF: 0 simvastatin 40 mg tablet 40 mg PO QPM RF: 0 irbesartan 300 mg tablet 300 mg PO DAILY RF: 0 tamsulosin 0.4 mg capsule 0.4 mg PO DAILY Qty: 30 RF: 11 aspirin 81 mg Tablet,Delayed Release (Dr/Ec) 81 mg PO DAILY RF: 0 Probiotic 10 billion cell Capsule 10,000 mmu cells PO DAILY RF: 0 dexamethasone 4 mg tablet 20 mg PO WK RF: 0 fluticasone propionate 50 mcg/actuation spray,suspension 2 spray INTRANASAL DAILY RF: 0 Revlimid 15 mg capsule 15 mg PO DAILY RF: 0 Admission Data Admit Date/Time: 06/30/21 10:43 Attending Provider: Nahomy Miranda Admit Provider: Dalila Miguel Primary Care Provider: Rhonda Laboy Other Providers: Dalila Miguel ; Stalin Mcmillan ; Vanessa Conteh
[2021-07-04 15:03] VITALS: BP 108/61; PULSE 71; TEMP 97.7
[2021-07-07] MEDS ORDERED: dexAMETHasone 4 MG TAB PO SCH (09:00)
== END 2021-07-04 16:45 | disposition home or self-care (01) ==
LOC: ED 06:17 → SUATTDRO 10:43 → INTOOBSV 10:43 → EDINP 10:43 → 3W 14:29